=== PATIENT | female | born 2005 | race Caucasian/White ===

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

== ENCOUNTER 2025-07-30 09:32 | Emergency (ER) | payer MEDICAID, SELFPAY ==
[2025-07-30 09:47] VITALS: BP 132/94; PULSE 93; RESP 16; O2SAT 97; BMI 27.3
--- NOTE | 2025-07-30 09:59 | PC.NURSE ---
Yarelis comes from home today reporting HI towards her family members. Pt is extremely hyperverbal, unable to maintain boundaries with others at this time. Agitated. MD at bedside to assess
--- NOTE | 2025-07-30 10:19 | ED_ITS ---
HPI - Psych General Chief Complaint: Psychiatric Symptoms Stated Complaint: SEC 12 HI/BROTHER PER EMS Time Seen by Provider: 07/30/25 10:03 Source: patient, EMS, silk winding machine operator and police Mode of arrival: EMS Limitations: no limitations History of Present Illness ED Provider: DR. Rodgers HPI Narrative: 19-year-old Palestinian-speaking female with history of PTSD, bipolar 1 disorder who presents to the ED via EMS and the police under section 12 after made homicidal statements toward her family, patient had prior ED presentations similar to today's presentation. Using the silk winding machine operator service during the interview patient is paranoid, no visual hallucination, when patient was asked about SI answered vaguely that she would hurt herself if she could. Related Data Home Medications ?Medication ?Instructions ?Recorded ?Confirmed norethindrone 1 mg-ethinyl 1 tab PO DAILY 07/30/25 estradiol 20 mcg (21)-iron 75 mg (7) tablet (Izzy Fe 11/01 (28)) Allergies Allergy/AdvReac Type Severity Reaction Status Date / Time seafood AdvReac Stomach Verified 07/30/25 09:56 Upset Review of Systems 2 Review of Systems: All other systems are reviewed and are negative Constitutional: Reports as per HPI and Reports no additional constitutional complaints Eyes: Reports as per HPI and Reports no additional eye complaints Reports system reviewed and no additional complaints, except as documented Cardiovascular: Reports as per HPI and Reports no additional cardiovascular complaints Respiratory: Reports as per HPI and Reports no additional respiratory complaints Gastrointestinal: Reports as per HPI and Reports no additional gastrointestinal complaints Genitourinary: Reports no additional female genitourinary complaints Musculoskeletal: Reports no additional musculoskeletal complaints Skin/Breast: Reports system reviewed and no additional complaints, except as docu Psychiatric: Reports no additional psychiatric complaints Endocrine: Reports no additional endocrine complaints Hematologic/Lymphatic: Reports no additional hematologic/lymphatic complaints Allergic/Immunologic: Reports no additional allergic/immunologic complaints Reports system reviewed and no additional complaints, except as documented and Reports Abnormal speech present PMFSH Past Medical History Medical History Headache Depression with suicidal ideation Bipolar 1 disorder Bipolar disorder with psychotic features Suicidal behavior Mood disorder Problem with family member being ill Insomnia Palpitations Lightheadedness No known health problems Patient denies significant medical history Social History Social History Household Members: Family Household Members Other:: mother, sister Housing: Other Housing Other:: hotel Do you presently have visiting nurse or other home services: No Alcohol intake: current Alcohol intake frequency: 0-2 drinks per day Alcohol type: beer Comment: 5u Patient Tobacco Use Status: Never used Tobacco e-Cigarette/Vaping Use: Never Used Second Hand Smoke Exposure: No Substance Use Type: Marijuana Advance Directives: No Advance Directives Information Provided: No Do you have a plan to hurt others: Vague service: No Sexual orientation: Unable to collect Physical Exam 2 Vital Signs: Vital Signs: Last Vital Signs Pulse 66 07/30/25 12:20 Resp 14 07/31/25 07:14 BP 111/72 07/30/25 12:20 Pulse Ox 100 07/30/25 12:20 O2 Del Method Room Air 07/30/25 12:20 BMI result Body Mass Index 27.3 Vital signs have been reviewed and appear to be correct. Blood pressure elevated. Heart rate normal. Respiratory rate normal. Temperature normal. Oxygen saturation normal. Appearance: Alert. Oriented X3. No acute distress. Head: Normal external exam. Normocephalic. Atraumatic. No Whitney signs noted. No raccoon eyes noted Eyes: PERRLA. EOMI. Conjunctiva and sclera normal. Eyelids normal. ENT: TM's Normal. Pharynx normal. Uvula midline. Moist mucous membranes. No trismus noted. No drooling noted. No muffled voice noted. Neck: Normal inspection. Neck supple. FROM. No adenopathy. Thyroid Normal. No meningeal signs. No neck mass noted. CVS: Normal heart rate and rhythm. Heart sound normal. No murmurs noted. Pulses normal throughout. Respiratory: No respiratory distress. Painless inspiration. Breath sounds normal. No wheezes/rales/rhonchi noted. Chest nontender. No accessory muscle usage noted or decreased air movement noted. Abdomen: Soft and nontender. Bowel sounds normal in all 4 quadrants. No distention noted. No organomegaly noted. No visible injury noted. Back: No CVA tenderness. Full range of motion noted. Skin: Skin warm and dry. Normal skin color. Normal skin turgor. No rashes/lesions/lacerations noted. Extremities: No lower extremity edema. Extremities exhibit normal range of motion. Extremities nontender. Neuro: Oriented X 3. Cranial nerve exam: II-XII are grossly intact No motor deficit. No sensory deficit. Reflexes normal. Patient Orientation: Person, Place, Time and Situation, okay hygiene and grooming. Fair eye contact, attentive, no tics or tremors. Level of Consciousness: Awake, Appropriate and Alert Patient Behavior: Appropriate, Guarded, Cooperative and Anxious Mood Description: Constricted, Blunted and Apprehensive Affect Description: Constricted, Blunted and Apprehensive Patient Cognition Impaired: No Ability to Follow Directions: Excellent Speech Pattern: Clear, Appropriate and Spontaneous Speech, nonpressured, spontaneous with regular rate and rhythm, normal volume and prosody. No dysarthria. Memory Description: Intact, Immediate Intact and Short Term Intact Hallucinations: None Delusions: Not Present Thought Process: Intact Thought Content: +SI, +HI Depressive Symptoms: Not present. Judgement and Insight: Limited but adequate. Course Reevaluation(s) Reevaluation #1: Medically cleared, will start on physician observation, continuous section 12, await for care team evaluation. Time: 11:30 Medications Administered Discontinued Medications Generic Name Dose Route Start Last Admin Trade Name Freq PRN Reason Stop Dose Admin Acetaminophen 975 mg 07/30/25 19:14 07/30/25 19:42 Acetaminophen 325 Mg Tablet PO 07/30/25 19:15 975 mg ONCE ONE Administration Olanzapine 10 mg 07/30/25 11:04 07/30/25 11:20 Olanzapine 10 Mg Vial IM 07/30/25 11:05 10 mg ONCE ONE Administration Medical Decision Making Medical Decision Making [facility] Narrative: 9:58 AM 07/31/2025 (Dr. Mauri Celis): Time: 09:58 Date: 07/31/25 Provider: Mauri Celis, DO Physician observation ended Patient has been cleared for discharge by the CARE team. Will follow up as an outpatient. Differential Diagnosis Differential Diagnoses: The differential diagnosis associated with the presentation includes (Medical clearance, acute psychosis, depression, SI, HI.) Admission/Observation Consideration of admission/observation: Escalation of care including admission/observation considered Lab Data 07/30/25 19:42 07/30/25 19:42 Labs: Lab Results 07/30/25 07/30/25 Range/Units 10:51 19:42 WBC 6.5 (4.8-10.8) X10*3/uL RBC 4.87 (4.20-5.50) X10*6/uL Hgb 13.0 (12.0-16.0) g/dl Hct 39.2 (37.0-47.0) % MCV 80.5 (80.0-98.0) fL MCH 26.7 L (27.0-33.0) pg MCHC 33.2 (31.0-35.0) g/dl RDW 15.3 (11.0-16.0) % Plt Count 318 (160-400) X10*3/uL MPV 11.2 (9.4-12.3) fL Immature Gran % (Auto) 0.2 (0.0-0.4) % Neut % (Auto) 51.5 (45-73) % Lymph % (Auto) 34.6 (20-40) % [place] % (Auto) 10.3 (2-11) % Eos % (Auto) 2.9 (0-4) % Baso % (Auto) 0.5 (0-2) % Lymph # (Auto) 2.3 (1.2-4.9) X10*3/uL [place] # (Auto) 0.7 (0.1-1.2) X10*3/uL Eos # (Auto) 0.2 (0.0-0.4) X10*3/uL Baso # (Auto) 0.0 (0.0-0.2) X10*3/uL Abs Immat Gran (auto) 0.01 (0.00-0.03) X10*3/uL Absolute Neuts (auto) 3.4 (2.0-8.3) x10*3/uL Absolute Nucleated RBC 0.000 (0.0-0.012) X10*3/uL Nucleated RBC % (auto) 0.0 (0.0-0.2) /100WBC Sodium 139 (135-145) mmol/L Potassium 3.6 (3.3-5.1) mmol/L Chloride 107 (96-108) mmol/L Carbon Dioxide 21 L (22-29) mmol/L Anion Gap 15 (12-20) BUN 9 (9-16) mg/dL Creatinine 0.75 (0.5-1.4) mg/dL Estim Creat Clear Calc 100.3 Estimated GFR > 60 Random Glucose 102 (60-115) mg/dL Calcium 9.4 (8.4-10.2) mg/dL Total Bilirubin 0.5 (0.0-1.0) mg/dL Direct Bilirubin 0.2 (0.0-0.5) mg/dL AST 36 H (5-31) U/L ALT 30 (0-31) U/L Alkaline Phosphatase 97 (39-117) U/L Total Protein 8.1 H (6.5-8.0) g/dL Albumin 4.8 (3.5-5.0) g/dL Lipase 14 (8-78) U/L Urine Color Yellow Urine Appearance Clear Urine pH 7.5 (5.0-9.0) Ur Specific [place] 1.015 (1.005-1.025) Urine Protein Negative (Neg-Trace) mg/dL Urine Glucose (UA) Negative (Negative) mg/dL Urine Ketones Negative (Negative) mg/dL Urine Blood Negative (Negative) Urine Nitrite Negative (Negative) Ur Leukocyte Esterase Small (1+) H (Negative) Urine RBC 0-2 (0-2) /HPF Urine WBC 0-5 (0-5) /HPF Ur Squamous Epith Cells 3-5 (0-2) /HPF Urine Bacteria Trace (None Seen) Hyaline Casts 0-2 (0-2) /LPF Urine Test NEGATIVE (NEGATIVE) Urine Opiates Screen Not Detected (Not Detect) Ur Buprenorphine Scrn Not Detected (Not Detect) ng/mL Ur Oxycodone Screen Not Detected (Not Detect) ng/mL Urine Methadone Screen Not Detected (Not Detect) ng/mL Urine Fentanyl Screen Not Detected (Not Detect) Ur Barbiturates Screen Not Detected (Not Detect) Valproic Acid < 12.5 L (50.0-100.0) mcg/mL Ur Phencyclidine Scrn Not Detected (Not Detect) Ur Amphetamines Screen Not Detected (Not Detect) U Benzodiazepines Scrn Not Detected (Not Detect) Urine Cocaine Screen Not Detected (Not Detect) U Marijuana (THC) Screen POSITIVE H (Not Detect) Ethyl Alcohol 10 mg/dL Discharge Plan Discharge Clinical Impression: Bipolar 1 disorder with moderate enio, Homicidal ideations, Feeling suicidal Patient Disposition: Home, Self-Care Additional Instructions: You were seen in our Emergency Department today for treatment of a behavioral health issue. It is important after your visit that you follow up with either your behavioral health provider or a primary care doctor within 7 days.? If you have trouble finding a therapist you can reach out to [address] [phone] The National Suicide and Crisis Lifeline can be reached 7 days a week 24 hours a day.? Call 988 to speak with someone.? Return for any worsening symptoms or concerns such as thoughts of self harm or harm to others. Please call 911 if you feel your mental health is worsening.? Prescriptions: No Action norethindrone-e.estradiol-iron [Izzy Pelletier 11/01 (28)] 1 mg-20 mcg (21)/75 mg (7) tablet 1 tab PO DAILY Interventions: [place]-Suicide Risk Severity Scale Last Done: 07/31/25 07:14 Print Language: Palestinian
[2025-07-30 11:09] LABS: UPreg QC Valid YES
[2025-07-30 11:10] LABS: Appearance Urine Clear; Glucose Urine UA Negative (Negative); PH 7.5 (5.0-9.0); Specific Gravity - Urine 1.015 (1.005-1.025); UMIC TRIGGER UACC YES
[2025-07-30 11:19] LABS: Cannabinoid Screen Urine POSITIVE (Not Detect)
[2025-07-30] MEDS: OLANZapine 10 MG VIAL IM (11:20)
--- OUTSIDE RECORDS SUMMARY | 2025-07-30 11:21 | XMS_ITS | Encounter Summary ---
Author Organization [employer] Address [address] [place] [address] Care Team Providers Care Cma Or Lpn Name Role Phone Tabatha Reaves Primary Care Provider Reason for Visit * Reason Onset Date Comments Hospital Follow-up 05/24/2025 Encounter Details Date Type Department Care Team ([facility] st Contact Info) Description 05/24/2025 Telephone [facility] MEDICINE [address] [place] [address] Tabatha Reaves FNP [address] [place] [address] Hospital Follow-up Social History Tobacco Use Types Packs/Day Years Used Date Smoking Tobacco: Never Passive Smoke Exposure: Never Smokeless Tobacco: Never Depression Answer Date Recorded Patient Health Questionnaire-9 Score 0 06/08/2025 Patient Health Questionnaire-9 Score 0 06/08/2025 Last PHQ-9: Questionnaire Data Not on file 0 06/08/2025 Housing Stability Answer Date Recorded What is your housing situation today? I have keila coello 06/08/[address] you li ve. Do you have problems with any of the following? I am not sure 06/08/2025 Food Insecurity Answer Date Recorded Within the past 12 months, y ou worried that your food would run out before you got money to buy more: Never True 06/08/2025 Within the past 12 months,th e food you bought just didn't last and you didn't have enough money to get more: Never True Transportation Answer Date Recorded In the past 12 months, has l ack of transportation kept you from medical appts, meetings, work or from getting things needed for daily living? I am not sure 06/08/2025 Utilities Answer Date Recorded In the past 12 months, has t he electric, gas, oil or water company threatened to shut off services in your home? I am not sure 06/08/2025 Depression Answer Date Recorded Patient Health Questionnaire-2 Score 0 06/08/2025 Internet Access Answer Date Recorded Internet Access Q1 No 06/08/2025 Internet Access Q2 Not on file 06/08/2025 Comments Unknown Sex and Gender Information Value Date Recorded Sex Assigned at Female 08/12/2022 10:36 AM EDT Legal Sex Female 10:36 AM EDT Gender Identity Female 08/12/2022 10:36 AM EDT Sexual Orientation Straight 09/30/2023 4: 59 PM EST Sexual Orientation Lesbian or Jj 09/30/2023 4: 59 PM EST documented as of this encounter Functional Status * Over the past 2 weeks, how often have you been bothered by any of the following problems? Question Answer Date of Assessment Author Patient Health Questionnaire-2 Score 0 06/08/2025 11:05 AM EDT Lizbeth Verma MA * Little interest or pleasure in doing things Answer Date of Assessment Author Not at all 06/08/2025 11:05 AM REGINALDT Lizbeth Prince Ma, [place] * Feeling down, depressed, or hopeless Answer Date of Assessment Author Not at all 06/08/2025 11:05 AM Lizbeth Bertrand Ma, [place] * Trouble falling or staying asleep, or sleeping too much Answer Date of Assessment Author Not at all 06/08/2025 11:05 AM Lizbeth Bertrand Ma, [place] * Feeling tired or having little energy Answer Date of Assessment Author Not at all 06/08/2025 11:05 AM Lizbeth Bertrand Ma, [place] * Poor appetite or overeating Answer Date of Assessment Author Not at all 06/08/2025 11:05 AM Lizbeth Bertrand Ma, [place] * Feeling bad about yourself - or that you are a failure or have let yourself or your family down Answer Date of Assessment Author Not at all 06/08/2025 11:05 AM EDLizbeth Mccormack Ma, [place] * Trouble concentrating on things, such as reading the newspaper or watching television Answer Date of Assessment Author Not at all 06/08/2025 11:05 AM Lizbeth Bertrand Ma, MA * Moving or speaking so slowly that other people could have noticed? Or the opposite - being so fidgety or restless that you have been moving around a lot more than usual. Answer Date of Assessment Author Not at all 06/08/2025 11:05 AM EDT Lizbeth Prince Ma, MA * Thoughts that you would be better off or hurting yourself in some way Answer Date of Assessment Author Not at all 06/08/2025 11:05 AM Lizbeth Bertrand Ma, MA * Patient Health Questionnaire-9 Score Answer Date of Assessment Author 0 06/08/2025 11:05 AM Lizbeth Bertrand Ma, [place] * Over the last 2 weeks, how often have you been bothered by any of the following problems? Question Answer Date of Assessment Author Feeling nervous, anxious, or on edge 0 06/08/2025 11:03 AM EDT Lizbeth Thompson MA Not being able to stop or control worrying 0 06/08/2025 11:03 AM Lizbeth Matthews MA Worrying too much about different things 0 06/08/2025 11:03 AM Lizbeth Matthews MA Trouble relaxing 0 06/08/2025 11:03 AM REGINALDT Lizbeth Thompson MA Being so restless that it is hard to sit still 0 06/08/2025 11:03 AM Lizbeth Matthews MA Becoming easily annoyed or irritable 0 06/08/2025 11:03 AM Lizbeth Matthews MA Feeling afraid as if something awful might happen 0 06/08/2025 11:03 AM EDT Lizbeth Phelan MA GABRIELLE-7 Total Score 0 06/08/2025 11:03 AM EDT Lizbeth Thompson MA documented as of this encounter Miscellaneous Notes * Telephone Encounter - Bushra Ann - 05/24/2025 10:43 AM EDT Tc from [facility] correctional counselor/case manager requesting to reschedule appt from 05/26, to day after the 06/01. Please contact [facility] at [phone] documented in this encounter Plan of Treatment Not on file documented as of this encounter Visit Diagnoses Not on filedocumented in this encounter Additional Health Concerns Assessment Noted Time PHQ-9 Depression Total Score: 18 024 1:55 PM EST documented as of this encounter Care Teams Cma Or Lpn Relationship Specialty Start Date End Date Tabatha Reaves FNP [address] [place] [id number] PCP - General Family Medicine 09/13/24 documented as of this encounter
--- OUTSIDE RECORDS SUMMARY | 2025-07-30 11:21 | XMS_ITS | Encounter Summary ---
Author Organization [employer] Address [address] [facility] 7t [place] [address] Care Team Providers Care Configurator Name Role Phone Tabatha Reaves Primary Care Provider [phone] Encounter Details Date Type Department Care Team ([facility] st Contact Info) Description 11/10/2024 Telephone [facility] [address] [place] [address] Tabatha Reaves FNP [address] [place] [address] Social History Tobacco Use Types Packs/Day Years Used Date Smoking Tobacco: Never Smokeless Tobacco: Never Depression Answer Date Recorded Patient Health Questionnaire-9 Score 18 11/13/2023 Patient Health Questionnaire-9 Score 18 11/13/2023 Last PHQ-9: Questionnaire Data Not on file 0 11/13/2023 Housing Stability Answer Date Recorded What is your housing situation today? I have keila coello 09/18/[address] you li ve. Do you have problems with any of the following? Pests such as bugs, ants, or mice 09/18/2023 Food Insecurity Answer Date Recorded Within the past 12 months, y ou worried that your food would run out before you got money to buy more: Sometimes True 2022 Within the past 12 months,th e food you bought just didn't last and you didn't have enough money to get more: Sometimes True 09/18/2023 Transportation Answer Date Recorded In the past 12 months, has l ack of transportation kept you from medical appts, meetings, work or from getting things needed for daily living? Yes, it has kept me from medical appointments or getting medications. 09/18/2023 Utilities Answer Date Recorded In the past 12 months, has t he electric, gas, oil or water company threatened to shut off services in your home? No 09/18/2023 Depression Answer Date Recorded Patient Health Questionnaire-2 Score 6 11/13/2023 Comments Unknown Sex and Gender Information Value Date Recorded Sex Assigned at Female 08/12/2022 10:36 AM EDT Legal Sex Female 10:36 AM EDT Gender Identity Female 08/12/2022 10:36 AM EDT Sexual Orientation Straight 09/30/2023 4: 59 PM EST Sexual Orientation Lesbian or Jj 09/30/2023 4: 59 PM EST documented as of this encounter Plan of Treatment Not on file documented as of this encounter Visit Diagnoses Not on filedocumented in this encounter Additional Health Concerns Assessment Noted Time PHQ-9 Depression Total Score: 18 024 1:55 PM EST documented as of this encounter Care Teams Configurator Relationship Specialty Start Date End Date Tabatha Reaves FNP [address] [place] [id number] PCP - General Family Medicine 09/13/24 documented as of this encounter
--- OUTSIDE RECORDS SUMMARY | 2025-07-30 11:21 | XMS_ITS | Encounter Summary ---
Author Organization [employer] Address [address] [facility] 7t [place] [address] Care Team Providers Care Career Technical Supervisor Name Role Phone Agatha Stallings MD Primary Care Provider Tabatha Reaves Primary Care Provider Encounter Details Date Type Department Care Team (Late st Contact Info) Description 08/09/2024 Orders Only [facility]ATR[facility] [address] [place] [id number] Agatha Stallings MD [address] [place], [place] [phone] Social History Tobacco Use Types Packs/Day Years [...] documented as of this encounter Care Teams Career Technical Supervisor Relationship Specialty Start Date End Date Agatha Stallings MD [address] [place] [address] PCP - General Pediatrics 04/26/22 09/12/24 Tabatha Reaves FNP [address] [place] [address] PCP - General Family Medicine 09/13/24 documented as of this encounter
--- OUTSIDE RECORDS SUMMARY | 2025-07-30 11:21 | XMS_ITS | Clinical Summary ---
Author Organization [employer] Address [address] [facility] 7t [place] [address] Care Team Providers Care Agitator Operator Name Role Phone Tabatha Reaves REACTOR TECHNICIAN Primary Care Provider [phone] Allergies No known active allergies Medications * This document contains information received from the source organization and may not represent a complete record from that organization. fluticasone (Flonase) 50 MCG/ACT nasal spray Administer 1 spray into each nostril Once per day. 16 g 2 01/18/20 25 Active albuterol 108 (90 Base) MCG/ACT inhalerIndicat ions:COVID-19 Inhale 2 puffs every 4 (four) hours if needed for wheezing or shortness of breath. 18 g 1 01/18/20 25 026 Active divalproex (Depakote) 500 MG EC tablet Take 2 tablets by mouth at bedtime. 05/31/20 25 Active EPINEPHrine (Epipen) 0.3 MG/0.3ML injection syringe INJECT INTRAMUSCULARLY DIRECTED ON PACKAGE AND GO TO EMERGENCY ROOM 05/31/20 25 Active melatonin 3 MG tablet Take 1 tablet by mouth at bedtime. 05/31/20 25 Active risperiDONE (RisperDAL) 1 MG tablet Take 1 tablet by mouth Once per day. 05/31/20 25 Active risperiDONE (RisperDAL) 2 MG tablet Take 1 tablet by mouth at bedtime. 05/31/20 25 Active Izzy FE 11/01 1-20 MG-MCG tablet Take 1 tablet by mouth Once per day. 05/31/20 25 Active Active Problems Problem Noted Date Diagnosed Date COVID-19 01/17/2025 Assessment & Plan (01/17/2025 10:37 AM EDT): Patient doesn't have significant risk factors, no need for Paxlovid today, will fu sxs 2 days (last day that she will be eligible for Paxlovid) and change POC if needed (? Rx Paxlovid?). Isolation until 01/19/25 and she will be out of school until then. Can be out of isolation, wearing a mask from 01/20/25 until 01/24/25, if sxs are resolved without other meds for at least 24h and covid test is NEG. Otherwise will need to be on isolation until 01/23/25 and wear a face mask until test is NEG. I gave her covid tests kits Counseled to let close contacts within the past week, know about dx so they can be tested if needed. Rest (sleep at least 8 hours a night). Wash hands frequently Hydrate with plenty of water. Use saline nose drops + Flonase Take Acetaminophen or Ibuprofen as Prn fever or discomfort Gargle with salt water and use throat sprays/lozenges prn + Albuterol inh prn severe cough, chest tightness or SOB Use heated, humidified air or take hot showers. If you have a fever, stay home and away from others (self isolation) until fever-free for 72 hours (temperature should be less than 100 F without medication). She will notify her close contacts to fu with their PCP Current severe episode of ma kelly depressive disorder with psychotic features without prior episode (CMS/HCC) 09/22/2023 Assessment & Plan (11/13/2023 4:44 PM EST): Measurement Tools [Check all that apply and include scores] PHQ9: 16 STAGES OF CHANGE PRE-CONTEMPLATION PLAN: (check all that apply) Behavioral Health Integration Plan Patient Self Plan Patient to reach [facility] as needed, Patient to reach out to [facility] as needed, and mother agrees to assist in contacting [facility] and [facility] for intake appointment. I will also be putting referral for [facility]. Behavioral Health Diagnoses At this time Yarelis meets criteria for Visit Diagnoses: Problem List Items Addressed This Visit Other Current severe episode of major depressive disorder with psychotic features without prior episode (CMS/HCC) Assessment & Plan (11/07/2023 10:17 AM EST): During IBH Consult Yarelis presenting with depressed mood, loss of interests/pleasure , changes in sleep difficulty falling asleep, difficulty staying asleep , and restless, unsatisfying sleep, trouble concentrating, thoughts of worthlessness or guilt, inappropriate guilt , hopelessness, worthlessness , recent self harm and Altered sensory perception recent visual hallucinations before inpatient stay, denies current perceptual disturbances; for a period of 0-6 mo in the context of family issues (reports previous disagreements with family had exacerbated sxs) PROTECTIVE FACTORS anglican/spirituality , responsibility to loved ones, social/community supports The patient receives support from her mother and twin sister., and future oriented Measurement Tools PHQ9 ..Patient Health Questionnaire-9 Score: 16 (09/30/2023 4:38 PM) Patient Health Questionnaire-2 Score: 3 (09/30/2023 4:38 PM) Moderate depressive sxs PLAN: Continue with current services (defined as services in the past 12 months) Behavioral Health Integration Plan Internal created safety plan with patient, sibling and mother where all medications will be in safe keeping of mother and other sharp or potentially hazardous objects in home would be under safe keep of mother. Patient Self Plan Patient to utilize skills provided in intervention , Patient to reach [facility] team as needed, Comply with medication , Patient to engage in OP therapy , Patient to reach out to [facility] as needed, and Patient to follow-up with external team Assessment & Plan (09/22/2023 2:59 PM EST): Yarelis presenting with depressed mood, loss of interests/pleasure, change in psychomotor activity, loss of energy, trouble concentrating, thoughts about or suicide and Altered sensory perception, Flat affect, Passivity, Trouble processing and with decision making, Difficulty with social interactions, and Other: visual hallucinations and auditory command voices ; for a period of 0-6 mo, for all symptoms in the context of family issues. Plan: New/Additional Services needed PCP management Off-site services for clinician to reach out to PCP and CM team to place additional supports , Behavioral Health Integration Plan Internal Follow up with I, Cold handoff to [facility]/FP, referral to counseling and testing, External unsure what Upcoming appointments for OP and psychiatry are in place as patient was unable to recall and mother had all the discharge documents with the information. I placed call to mother to gather information, but was unable to connect. Left message for return call. R/o of Schizophrenia and Schizoaffective disorder Dysmenorrhea 11/11/2022 Dyssomnia 11/11/2022 Hypercholesterolemia 11/11/2022 Iron deficiency anemia 11/11/2022 Encounters * This document contains information received from the source organization and may not represent a complete record from that organization. Date Type Department Care Team Description 06/08/2025 10:00 AM EDT Office Visit [address] [address] Tabatha Reaves FNP Current severe episode of major depressive disorder with psychotic features without prior episode (CMS/HCC) (Primary Dx) 06/08/2025 Travel 06/07/[address] [address] Tabatha Reaves FNP chart prep 05/24/[address] [address] Tabatha Reaves FNP Hospital Follow-up 05/09/2025 Patient Outreach [address] [address] Tabatha Reaves FNP Transition Of Care (Tcm) (Scheduled (direct)) from Last 3 Months Immunizations Immunization Administration Dates Next Due DTaP / Hep B / IPV 2005 HPV 9-Valent 11/20/2018,05/20/2018 Hep A, Unspecified 05/20/2018 Hep A, ped/adol, 2 dose 09/08/2006 Hep B, Unspecified 03/17/2006,2005 IPV 01/16/2010, 6,01/13/2006,11/11 Influenza injectable quadriv alent preservative free 07/30/2023,11/11/2019 Influenza, seasonal, injecta ble, preservative free 09/03/2024 MMR 01/16/2010,12/19/2006 Meningococcal MCV4P ACYW-135 04/23/2022,05/20/20 18 Pneumococcal Conjugate PCV 13 12/19/2006 ,03/17/2006,01/13/2006,11/11 Tdap 05/20/2018 Varicella 01/16/2010,09/03/2007 Social History Tobacco Use Types Packs/Day Years Used Date Smoking Tobacco: Never Passive Smoke Exposure: Never Smokeless Tobacco: Never Tobacco Cessation:Counseling Given: Not Answered Depression Answer Date Recorded Patient Health Questionnaire-9 [...] or Jj 09/30/2023 4: 59 PM EST Last Filed Vital Signs Vital Sign Reading Time Taken Comments Blood Pressure 122/76 06/08/2025 10:28 AM EDT Pulse 100 06/08/2025 10:28 AM EDT Temperature 36.7 C (98.1 F) 06/08/2025 10:28 AM EDT Respiratory Rate 22 06/08/2025 10:28 AM EDT Oxygen Saturation 97% 06/08/2025 10:28 AM EDT Inhaled Oxygen Concentration - - Weight 76.3 kg (168 lb 2 oz) 06/08/2025 10:28 AM EDT Height 158.1 cm (5' 2.26 ) 06/08/2025 10:28 AM E DT Body Mass Index 30.5 06/08/2025 10:28 AM EDT Plan of Treatment Health Maintenance Due Date Last Done Comments Fluoride Varnish 05/06/2006 Family Planning (PISQ) 2020 Meningococcal B Vaccine (1 of 2 - Standard) 2021 Chlamydia and Gonorrhea Screening 10/05/2024 10/05/2023, 04/29/2022 COVID-19 Vaccine (2 - season) 2025 06/15/2021 Influenza Vaccine (#1) 2025 , 07/30/2023, 11/11/2019 Alcohol/Substance Use Screening 06/08/2026 06/08/2025 Depression Screening 06/08/2026 06/08/2025, 06/08/20 Disability Screening 06/08/2026 06/08/2025 SDOH Screening 06/08/2026 06/08/2025 Tobacco Screening 06/08/2026 06/08/2025 DTaP/Tdap/Td Vaccines (2 - Td or Tdap) 05/20/2028 05/20/2018, 2005 Zoster Vaccines (1 of 2) 2055 RSV Patients and Patients Aged 60 years or older (1 - 1-dose 75+ series) 2080 Hepatitis B Vaccines Completed 03/17/2006, 2005, 2005 Pneumococcal Vaccine: Pediatrics (0 to 5 Years) and At-Risk Patients (6 to 49) Years Completed 12/19/2006, 03/17/2006, 01/13/2006, Additional history exists IPV Vaccines Completed 01/16/2010, 02/2006, 01/13/2006, Additional history exists MMR Vaccines Completed 01/16/2010, 12/19/2006 Varicella Vaccines Completed 01/16/2010, 09/03/2007 Hepatitis A Vaccines Completed 05/20/2018, 09/08/20 06 HPV Vaccines Completed 11/20/2018, 05/20/2018 Meningococcal Vaccine Completed 04/23/2022, 018 HIV Screening Completed 04/30/2022 Hepatitis C Screening Completed 04/30/2022 HIB Vaccines Aged Out No longer eligi ble based on patient's age to complete this topic RSV under 20 months Aged Out No longe r eligible based on patient's age to complete this topic Rotavirus Vaccines Aged Out No longer eligible based on patient's age to complete this topic Procedures Procedure Name Priority Date/Time Associated Diagnosis Comments CHLAMYDIA/N. GONORRHOEAE RNA, TMA, UROGENITAL Routine 10/05/2023 8:26 AM EST ZZZ HISTORICAL HEPATITIS C AB W/REFL TO HCV RNA, QN, PCR Routine 04/30/2022 4:26 PM EDT HIV 1/2 ANTIGEN/ANTIBODY, FOURTH GENERATION W/RFL Routine 04/30/2022 4:26 PM EDT from Last 3 Months or Most Recently Relevant to Health Maintenance Results * Chlamydia/N. Gonorrhoeae RNA, TMA, Urogenitial (10/05/2023 8:26 AM EST) CT PCR NOT DETECTED Not Detect. [facility] Comment:A not detected test result does not exclude the possibilityof infection because test results can be affected byimproper specimen collection, concurrent antibiotic therapy,or the number of organisms in the specimen which may bebelow the sensitivity of the test. As with many diagnostictests, results from the Xpert CT/NG assay should beinterpreted in conjunction with other laboratory andclinical data available to the clinician.Xpert CT/NG performance has not been evaluated in patientsless than 14 years of age. The assay should not be used forthe evaluationof suspected sexual abuse or for other medico-legalindications. Additional testing is recommended in anycircumstance when false positive or false negative resultscould lead to adverse medical, social or psychologicalconsequences. NG PCR NOT DETECTED Not Detect. [facility] Comment:A not detected test result does not exclude the possibilityof infection because test results can be affected byimproper specimen collection, concurrent antibiotic therapy,or the number of organisms in the specimen which may bebelow the sensitivity of the test. As with many diagnostictests, results from the Xpert CT/NG assay should beinterpreted in conjunction with other laboratory andclinical data available to the clinician.Xpert CT/NG performance has not been evaluated in patientsless than 14 years of age. The assay should not be used forthe evaluationof suspected sexual abuse or for other medico-legalindications. Additional testing is recommended in anycircumstance when false positive or false negative resultscould lead to adverse medical, social or psychologicalconsequences. 10/05/2023 8:26 AM EST 10/05/2023 8:49 AM EST Narrative [facility] - 10/05/2023 10:24 AM EST Urine us Generic External Data Provider LAB MICROBIOLOGY - GENERAL ORDERABLES Final Result [facility] [address] [place] [phone] * HEPATITIS C AB W/REFL TO HCV RNA, QN, PCR (04/30/2022 4:26 PM EDT) HEPATITIS C ANTIBODY NON-REACT [facility] NON-REACT [facility] INDEX 0.08 <1.00 [facility] Comment: HCV antibody was non-reactive. There is no laboratory evidence of HCV infection. In most cases, no further action is required. However, if recent HCV exposure is suspected, a test for HCV RNA (test code 43401) is suggested. For additional information please refer to http://education.iZettle/faq/OLO28z0 (This link is being provided for informational/ educational purposes only.) 04/30/2022 4:26 PM EDT Agatha Stallings MD HISTORICAL/NON ORDERABLE LABS Final Result Performing Organization Address [facility] Co de Phone Number [facility] [address] * HIV 1/2 ANTIGEN/ANTIBODY,FOURTH GENERATION W/RFL (04/30/2022 4:26 PM EDT) HIV-1/2 ANTIGEN AND ANTIBODIES, 4TH GENERATION W/ REFLEX NON-REACT [facility] NON-REACT [facility] Comment: HIV-1 antigen and HIV-1/HIV-2 antibodies were not detected. There is no laboratory evidence of HIV infection. PLEASE NOTE: This information has been disclosed to you from records whose confidentiality may be protected by state law. If your state requires such protection, then the state law prohibits you from making any further disclosure of the information without the specific written consent of the person to whom it pertains, or as otherwise permitted by law. A general authorization for the release of medical or other information is NOT sufficient for this purpose. For additional information please refer to http://education.iZettle/faq/ZRW190 (This link is being provided for informational/ educational purposes only.) The performance of this assay has not been clinically validated in patients less than 2 years old. 04/30/2022 4:26 PM EDT Agatha Stallings MD LAB BLOOD ORDERABLES Final Re sult Performing Organization Address [facility] de Phone Number [facility] [address] from Last 3 Months or Most Recently Relevant to Health Maintenance [place] [address] [place] [address] C3 Care Teams Agitator Operator Relationship Specialty Start Date End Date Tabatha Reaves FNP [address] [place] [phone] PCP - General Family Medicine 09/13/24
--- OUTSIDE RECORDS SUMMARY | 2025-07-30 11:21 | XMS_ITS | Encounter Summary ---
Author Organization [employer] Address [address] [facility] [address] [place] [address] Care Team Providers Care Supervisor Phosphatic Fertilizer Name Role Phone Agatha Stallings MD Primary Care Provider [phone] Tabatha Reaves Primary Care Provider [phone] Encounter Details Date Type Department Care Team (Late st Contact Info) Description 07/15/2023 Orders Only [facility] [address] [place] [phone] Agatha Stallings MD [address] [place] [phone] Social History Tobacco Use Types Packs/Day Years Used Date Smoking Tobacco: Never Smokeless Tobacco: Never Comments Unknown Sex and Gender Information Value [...] Diagnoses Not on filedocumented in this encounter Care Teams Supervisor Phosphatic Fertilizer Relationship Specialty Start Date End Date Agatha Stallings MD [address] [place] [phone] PCP - General Pediatrics 04/26/22 09/12/24 Tabatha Reaves FNP [address] [place] [phone] PCP - General Family Medicine 09/13/24 documented as of this encounter
[2025-07-30 11:36] LABS: UACC Culture Trigger YES
[2025-07-30 11:50] VITALS: PULSE 74; RESP 16; O2SAT 98
[2025-07-30 12:05] VITALS: PULSE 71; RESP 16; O2SAT 99
[2025-07-30 12:20] VITALS: BP 111/72; PULSE 66; RESP 18; O2SAT 100
--- NOTE | 2025-07-30 12:24 | PC.NURSE ---
RE: Medication Restraint Medication Administered: - Zyprexa 10mg IM Physical Hold? Yes Details: Patient arrived via EMS, agitated, pacing, hyperverbal and manic. Patient extremely intrusive, running around other patients, touching them, refusing to maintain personal boundaries. Pt is very minimally redirectable. Dr. Rodgers consulted 10mg IM Zyprexa decided upon. Pt was escorted to [facility] by this RN and . Pt willingly took IM with and SAMRA Scott holding her arms for safety. Pt fell asleep about 30 minutes after IM was administered
--- NOTE | 2025-07-30 14:22 | PC.NURSE ---
Unable to obtain bloodwork at this time
[2025-07-30 20:06] LABS: MANUAL DIFF FLAG NO
[2025-07-30 20:07] LABS: Hematocrit 39.2 % (37.0-47.0); Hemoglobin 13.0 g/dl (12.0-16.0); Imm Gran Abs Auto 0.01 X10*3/uL (0.00-0.03); Imm Gran Pct Auto 0.2 % (0.0-0.4); Lymphocytes Absolute Auto 2.3 X10*3/uL (1.2-4.9); Mean Corpuscular HGB Conc 33.2 g/dl (31.0-35.0); Mean Corpuscular Hemoglobin 26.7 pg (27.0-33.0); Mean Corpuscular Volume 80.5 fL (80.0-98.0); NRBC Abs Auto 0.000 X10*3/uL (0.0-0.012); NRBC Pct Auto 0.0 /100WBC (0.0-0.2); Platelet Count 318 X10*3/uL (160-400); Red Blood Count 4.87 X10*6/uL (4.20-5.50); White Blood Count 6.5 X10*3/uL (4.8-10.8)
[2025-07-30 20:25] LABS: Alanine Aminotransferase 30 U/L (0-31); Albumin Level 4.8 g/dL (3.5-5.0); Alkaline Phosphatase 97 U/L (39-117); Anion Gap 15 (12-20); Aspartate Amino Transferase 36 U/L (5-31); Blood Urea Nitrogen 9 mg/dL (9-16); Calcium 9.4 mg/dL (8.4-10.2); Carbon Dioxide 21 mmol/L (22-29); Chloride 107 mmol/L (96-108); Creatinine Clr Calc Pharmacy 100.3; Estimated Glomerular Filt Rate > 60; Lipase 14 U/L (8-78); Potassium 3.6 mmol/L (3.3-5.1); Sodium 139 mmol/L (135-145); Total Protein 8.1 g/dL (6.5-8.0)
--- NOTE | 2025-07-30 20:29 | PC.NURSE ---
Assumed care of patient at 1900, patient appears to be anxious about when she will be discharged; she is noted to be on the phone on and off with her mother. She c/o of [facility] messaged - put in an order for tylenol. Pt medicated per DEC. Pt is now resting in her bed. respirations even and unlabored. Will continue to monitor.
--- NOTE | 2025-07-31 07:06 | PC.NURSE ---
Assumed care of patient at 0645, patient appears to be sleeping at this time, respirations even and unlabored, no apparent distress is noted. Continue plan of care for CARE team re-assessment this am
[2025-07-31 07:14] VITALS: RESP 14
[2025-07-31 10:06] VITALS: BP 102/66; PULSE 69; RESP 16; TEMP 37.2; O2SAT 99
== END 2025-07-31 10:33 | disposition home or self-care (01) ==
PROVIDERS: Emergency Provider Emergency Medicine; PCP Pediatrics
DX: F31.9 Bipolar disorder, unspecified (principal); R45.850 Homicidal ideations; R45.851 Suicidal ideations
CPT/HCPCS: 36415; 80048; 80076; 80164; 80307; 81001; 81025; 83690; 85025; 87086; 96372; 99285; J2359; S9485

== ENCOUNTER 2025-08-11 07:38 | Inpatient (IN) | payer OTHER, SELFPAY ==
[2025-08-11] VITALS (7 sets, daily range): BP systolic 142–145; BP diastolic 74–85; PULSE 94–133; RESP 14–22; TEMP 36.4–36.7; O2SAT 96–99; BMI 25.4
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
[2025-08-11] MEDS: OLANZapine 10 MG VIAL IM (07:55)
--- NOTE | 2025-08-11 08:15 | PC.NURSE ---
RE: blood draw Patient continually pulling away from blood draw, unable to safely obtain at this time
--- OUTSIDE RECORDS SUMMARY | 2025-08-11 08:49 | XMS_ITS | Encounter Summary ---
Author Organization [employer] Address [address] [facility] 7t [place] [address] Care Team Providers Care Circular Knife Cutter Machine Name Role Phone Tabatha Reaves RESEARCH INTERN Primary Care Provider [phone] Ellen Powell RN Unavailable [phone] Lizbeth Ann Unavailable Encounter Details Date Type Department Care Team (Late st Contact Info) Description 11/10/2024 Telephone [facility] [address] [place] [address] Tabatha Reaves FNP [address] [place], [place] [phone] Social History Tobacco Use Types Packs/Day Years [...] documented as of this encounter Care Teams Circular Knife Cutter Machine Relationship Specialty Start Date End Date Tabatha Reaves FNP [address] [place] [address] PCP - General Family Medicine 09/13/24 Ellen Powell RN [address] [place] [address] Registered Nurse Family Medicine 08/01/25 Lizbeth Ann 08/01/25 documented as of this encounter
--- OUTSIDE RECORDS SUMMARY | 2025-08-11 08:49 | XMS_ITS | Clinical Summary ---
Author Organization [employer] Address [address] [facility] 7t [place] [address] Care Team Providers Care Molecular Geneticist Name Role Phone Emili Reavesupe CITY WELLNESS COORDINATOR Primary Care Provider [phone] Ellen Powell RN Unavailable [phone] iLzbeth Ann Unavailable Allergies No known active allergies Medications * [...] disorder with psychotic features without prior episode ([facility]) 09/22/2023 Assessment & Plan (11/13/2023 4:44 PM EST): Measurement Tools [Check all that apply and include scores] PHQ9: 16 STAGES OF CHANGE PRE-CONTEMPLATION PLAN: (check all that apply) Behavioral Health Integration Plan Patient Self Plan [facility], Patient to reach out to [facility] as needed, and mother agrees to assist in contacting [facility] and [facility] for intake appointment. I will also be putting referral for [facility]. Behavioral Health Diagnoses At this time Yarelis meets criteria for Visit Diagnoses: Problem List Items Addressed This Visit Other Current severe episode of major depressive disorder with psychotic features without prior episode ([facility]) Assessment & Plan (11/07/2023 10:17 AM EST): [...] with family had exacerbated sxs) PROTECTIVE FACTORS buddhist/spirituality , responsibility to loved ones, social/community supports [...] intervention , Patient to reach out to [facility] team as needed, Comply with medication , Patient to engage in OP therapy , Patient to reach out to [facility] as needed, and Patient to follow-up with [...] organization. Date Type Department Care Team Description 08/01/2025 Patient Outreach [address] [address] Tabatha Reaves FNP Care Coordination (C3 CM-CHW Lizbeth Ann chart review) 08/01/2025 Patient Outreach [address] [address] Tabatha Reaves FNP Care Management (C3CM -CHART REVIEW/) 08/01/2025 Patient Outreach [address] [address] Tabatha Reaves FNP 06/08/2025 10:00 AM EDT Office Visit [address] [address] Tabatha Reaves FNP Current severe episode of major depressive disorder with psychotic features without prior episode (CMS/HCC) (Primary Dx) 06/08/2025 Travel 06/07/[address] [address] Tabatha Reaves FNP chart prep 05/24/[address] [address] Tabatha Reaves FNP Hospital Follow-up from Last 3 Months Immunizations Immunization Administration [...] Gonorrhea Screening 10/05/2024 10/05/2023, 04/29/2022 COVID-19 Vaccine ( - season) 2025 06/15/2021 Influenza Vaccine (#1) [...] EST) CT PCR NOT DETECTED Not Detect. [facility] Comment:A not detected test result does [...] psychologicalconsequences. NG PCR NOT DETECTED Not Detect. [facility] Comment:A not detected test result does [...] AM EST 10/05/2023 8:49 AM EST Narrative [facility] - 10/05/2023 10:24 AM EST Urine us Generic External Data Provider LAB MICROBIOLOGY - GENERAL ORDERABLES Final Result [facility] [address] [place] [address] [phone] * HEPATITIS C AB W/REFL TO HCV RNA, QN, PCR (04/30/2022 4:26 PM EDT) HEPATITIS C ANTIBODY NON-REACT JUVENTINO NON-REACT JUVENTINO [facility] INDEX 0.08 <1.00 [facility] Comment: HCV antibody was non-reactive. There is no laboratory evidence of HCV infection. In most cases, no further action is required. However, if recent HCV exposure is suspected, a test for HCV RNA (test code 87529) is suggested. For additional information please refer to http://[employer]/faq/SHZ04y2 (This link is being provided for informational/ educational purposes only.) 04/30/2022 4:26 PM EDT us Agatha Stallings MD HISTORICAL/NON ORDERABLE LABS Final Result Performing Organization Address [facility] Co de Phone Number [facility] [address] * HIV 1/2 ANTIGEN/ANTIBODY,FOURTH GENERATION W/RFL (04/30/2022 4:26 PM EDT) HIV-1/2 ANTIGEN AND ANTIBODIES, 4TH GENERATION W/ REFLEX NON-REACT JUVENTINO NON-REACT JUVENTINO [facility] Comment: HIV-1 antigen and HIV-1/HIV-2 [...] purpose. For additional information please refer to http://[employer]/faq/CQQ872 (This link is being provided for informational/ educational purposes only.) The performance of this assay has not been clinically validated in patients less than 2 years old. 04/30/2022 4:26 PM EDT us Agatha Stallings MD LAB BLOOD ORDERABLES Final Re sult Performing Organization Address [facility] Co de Phone Number [facility] [address] from Last 3 Months or Most Recently Relevant to Health Maintenance Insurance [facility] C3 Care Teams Molecular Geneticist Relationship Specialty Start Date End Date Tabatha Reaves FNP [address] [place] [phone] PCP - General Family Medicine 09/13/24 Ellen Powell, SHAMIKA [address] [place] [phone] Registered Nurse Family Medicine 08/01/25 Lizbeth Ann 08/01/25
--- OUTSIDE RECORDS SUMMARY | 2025-08-11 08:49 | XMS_ITS | Encounter Summary ---
Author Organization [employer] Address [address] [facility] 7t [place] [address] Care Team Providers Care Truck Supervisor Name Role Phone gAatha Stallings MD Primary Care Provider Tabatha ReavesP Primary Care Provider [phone] Ellen Powell RN Unavailable [phone] Lizbeth Ann Unavailable Encounter Details Date Type Department Care Team (Late st Contact Info) Description 07/15/2023 Orders Only [facility] [address] [place] [phone] Agatha Stallings MD [address] [place] [address] [phone] Social History Tobacco Use Types Packs/Day Years [...] on filedocumented in this encounter Care Teams Truck Supervisor Relationship Specialty Start Date End Date Agatha Stallings MD [address] [place] [phone] PCP - General Pediatrics 04/26/22 09/12/24 Tabatha Reaves FNP [address] [place], [place] [phone] PCP - General Family Medicine 09/13/24 Ellen Powell RN [address] [place], [place] [phone] Registered Nurse Family Medicine 08/01/25 Lizbeth Ann 08/01/25 documented as of this encounter
--- OUTSIDE RECORDS SUMMARY | 2025-08-11 08:50 | XMS_ITS | Encounter Summary ---
Author Organization [employer] Address [address] [facility] 7t [place] [address] Care Team Providers Care Petal Shaper Hand Name Role Phone Agatha Stallings MD Primary Care Provider [phone] Tabatha Reaves Primary Care Provider [phone] Ellen Powell RN Unavailable [phone] Lizbeth Ann Unavailable Encounter Details Date Type Department Care Team (Late st Contact Info) Description 08/09/2024 Orders Only [facility] [address] [place], [place] [phone] Agatha Stallings MD [address] [place], [place] [phone] Social History Tobacco Use Types Packs/Day Years Used Date Smoking Tobacco: Never Smokeless Tobacco: Never Depression Answer Date Recorded Patient Health Questionnaire-9 Score 18 11/13/2023 Patient Health Questionnaire-9 Score 18 11/13/2023 Last PHQ-9: Questionnaire Data Not on file 0 11/13/2023 Housing Stability Answer Date Recorded What is your housing situation today? I have keilavianca coello 09/18/[address] you [...] documented as of this encounter Care Teams Petal Shaper Hand Relationship Specialty Start Date End Date Agatha Stallings MD [address] [place] [phone] PCP - General Pediatrics 04/26/22 09/12/24 Tabatha Reaves FNP [address] [place] [address] PCP - General Family Medicine 09/13/24 Ellen Powell RN [address] [place] [phone] Registered Nurse Family Medicine 08/01/25 Lizbeth Ann 08/01/25 documented as of this encounter
--- OUTSIDE RECORDS SUMMARY | 2025-08-11 08:50 | XMS_ITS ---
Author Organization [employer] Address [address] [facility] [address]t [place] [address] Care Team Providers Care Hand Suture Winder Name Role Phone Tabatha ReavesP Primary Care Provider Ellen Powell RN Unavailable [phone] Lizbeth Ann Unavailable CHW Complex Status:Identified (Enrolling) Start date:08/01/2025 Enrollment reason:ADT Feed Overview ED- Pt went to [facility] ED on 07/30/25. Please outreach to patient. Case Team Name Relationship Phone Lizbeth Ann(Responsible Staff) Continued Care and Services Coordination
--- OUTSIDE RECORDS SUMMARY | 2025-08-11 08:50 | XMS_ITS ---
Author Organization [employer] Address [address] [facility] 7t [place] [address] Care Team Providers Care Supervisor Purification Name Role Phone Tabatha Reaves Primary Care Provider [phone] Ellen Powell RN Unavailable [phone] Lizbeth Ann Unavailable CM Complex Status:Identified (Enrolling) Start date:08/01/2025 Enrollment reason:ADT Feed Overview ED- Pt went to [facility] ED on 07/30/25. Case Team Name Relationship Phone Ellen Powell RN(Responsible Staff) Registered Nurse Continued Care and Services Coordination
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
--- NOTE | 2025-08-11 09:54 | MHC.CARE ---
Pt has been medicated and will be a next shift follow up.
--- NOTE | 2025-08-11 17:00 | PC.NURSE ---
Pt spent majority of day sleeping, woke up, ate some food and is now back in bed resting. Pt attempted to provide urine a third time without success. This RN also attempted blood draw but pt continues to pull away
[2025-08-11 17:26] LABS: MANUAL DIFF FLAG NO
[2025-08-11 17:27] LABS: Hematocrit 42.2 % (37.0-47.0); Hemoglobin 13.4 g/dl (12.0-16.0); Imm Gran Abs Auto 0.02 X10*3/uL (0.00-0.03); Imm Gran Pct Auto 0.2 % (0.0-0.4); Lymphocytes Absolute Auto 2.3 X10*3/uL (1.2-4.9); Mean Corpuscular HGB Conc 31.8 g/dl (31.0-35.0); Mean Corpuscular Hemoglobin 26.8 pg (27.0-33.0); Mean Corpuscular Volume 84.4 fL (80.0-98.0); NRBC Abs Auto 0.000 X10*3/uL (0.0-0.012); NRBC Pct Auto 0.0 /100WBC (0.0-0.2); Platelet Count 419 X10*3/uL (160-400); Red Blood Count 5.00 X10*6/uL (4.20-5.50); White Blood Count 8.5 X10*3/uL (4.8-10.8)
[2025-08-11 17:52] LABS: Alanine Aminotransferase 40 U/L (0-31); Albumin Level 5.2 g/dL (3.5-5.0); Alkaline Phosphatase 110 U/L (39-117); Anion Gap 16 (12-20); Aspartate Amino Transferase 39 U/L (5-31); Blood Urea Nitrogen 15 mg/dL (9-16); Calcium 9.9 mg/dL (8.4-10.2); Carbon Dioxide 23 mmol/L (22-29); Chloride 103 mmol/L (96-108); Creatinine Clr Calc Pharmacy 86.5; Estimated Glomerular Filt Rate > 60; Potassium 3.7 mmol/L (3.3-5.1); Sodium 138 mmol/L (135-145); Total Protein 9.0 g/dL (6.5-8.0)
--- NOTE | 2025-08-11 23:04 | PC.NURSE ---
RE: restraint Pt was observed thrashing in bed, punching herself in the head, punching the wall, screaming and unable to calm herself down. Pt appeared to be responding to internal stimuli, screaming at what appeared to be other individuals around the room despite being alone. Pt was IMd, required physical hold per paper documentation
--- NOTE | 2025-08-12 06:26 | PC.NURSE ---
VS attempted, but patient refused turning away in bed. Unable to obtain VS at this time.
--- NOTE | 2025-08-12 08:00 | PC.NURSE ---
Assumed care, report received. Pt is currently sleeping, she is brought breakfast. Safety is maintained.
[2025-08-12 10:19] LABS: UPreg QC Valid YES
[2025-08-12 10:22] VITALS: BP 142/100; PULSE 105; TEMP 36.9; O2SAT 95
[2025-08-12 10:22] LABS: Appearance Urine Cloudy; Glucose Urine UA Negative (Negative); PH 5.5 (5.0-9.0); Specific Gravity - Urine >= 1.030 (1.005-1.025); UMIC TRIGGER UACC YES
[2025-08-12 10:27] LABS: UACC Culture Trigger YES
[2025-08-12 10:29] LABS: Cannabinoid Screen Urine POSITIVE (Not Detect)
[2025-08-12] MEDS: OLANZapine 10 MG VIAL IM ×2 (10:53→11:57)
[2025-08-12 11:31] VITALS: BP 142/72; PULSE 105; RESP 18; TEMP 36; O2SAT 98
--- NOTE | 2025-08-12 11:49 | MHC.CARE ---
Pt has a DMH worker through [facility] office;Flores Villasenor [phone] [email or web address]
[2025-08-12] MEDS: diazePAM 10 MG/2 ML CARTRIDGE IM (13:47)
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
[2025-08-12 14:57] VITALS: BP 104/69; PULSE 130; RESP 14; TEMP 36; O2SAT 98
--- NOTE | 2025-08-12 16:34 | PC.NURSE ---
Pt was removed from Lower restraints at 1620 and removed from Upper restraints at 1640. She has been told her cell phone has been located and locked up with her belongings. She is able to agree to remain calm. she is resting in bed, VSS she is offfered food and given water.
[2025-08-12 18:43] VITALS: BP 140/81; PULSE 138; RESP 18; TEMP 36.6; O2SAT 98
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
[2025-08-12 20:00] VITALS: BP 140/81; PULSE 138; RESP 18; TEMP 36.6; O2SAT 98
[2025-08-12] MEDS: Valproic Acid Liquid 250 MG/5 ML SOLUTION 500 MG PO (21:40)
[2025-08-12] MEDS: OLANZapine ODT 10 MG TAB.RAPDIS TRANSLINGU (21:40)
[2025-08-13 08:00] VITALS: BP 133/72; PULSE 131; RESP 18; TEMP 36.2; O2SAT 98
[2025-08-13] MEDS: OLANZapine ODT 10 MG TAB.RAPDIS TRANSLINGU ×2 (08:32→21:38)
[2025-08-13] MEDS: Valproic Acid Liquid 250 MG/5 ML SOLUTION 500 MG PO ×2 (08:32→21:38)
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
[2025-08-13 11:18] LABS: Cholesterol 227 mg/dL (<200); HDL Cholesterol 41 mg/dL (>40); Magnesium 2.2 mg/dL (1.6-2.6); Triglycerides 117 mg/dL (<150)
[2025-08-13 11:26] LABS: Free T4 (Free Thyroxine) 1.41 ng/dL (0.71-1.85); Thyroid Stimulating Hormone 0.63 uIU/mL (0.32-4.0)
[2025-08-13 11:48] LABS: Folate 13.7 ng/mL (> or = 4.0); Vitamin B12 479 pg/mL (200-900)
[2025-08-13 20:00] VITALS: BP 142/95; PULSE 58; RESP 18; TEMP 36.3; O2SAT 97
[2025-08-14 08:00] VITALS: BP 136/87; PULSE 111; RESP 18; TEMP 36.2; O2SAT 96
[2025-08-14] MEDS: Valproic Acid Liquid 250 MG/5 ML SOLUTION 500 MG PO ×2 (09:39→20:58)
[2025-08-14] MEDS: OLANZapine ODT 10 MG TAB.RAPDIS TRANSLINGU ×2 (09:39→20:56)
[2025-08-14 20:00] VITALS: BP 136/62; PULSE 103; TEMP 36.7; O2SAT 97
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
[2025-08-15 08:00] VITALS: RESP 16
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
[2025-08-15] MEDS: Valproic Acid Liquid 250 MG/5 ML SOLUTION 500 MG PO ×2 (12:38→22:11)
[2025-08-15] MEDS: OLANZapine ODT 10 MG TAB.RAPDIS TRANSLINGU ×2 (12:39→22:12)
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
[2025-08-16 08:00] VITALS: RESP 16
[2025-08-16] MEDS: Valproic Acid Liquid 250 MG/5 ML SOLUTION 500 MG PO ×2 (08:18→20:48)
[2025-08-16] MEDS: OLANZapine ODT 10 MG TAB.RAPDIS TRANSLINGU ×2 (08:18→20:49)
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
[2025-08-16 20:00] VITALS: BP 107/68; PULSE 76; RESP 18; TEMP 36.8; O2SAT 98
[2025-08-17 08:00] VITALS: RESP 18
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
[2025-08-17] MEDS: Valproic Acid Liquid 250 MG/5 ML SOLUTION 500 MG PO ×2 (09:43→20:35)
[2025-08-17] MEDS: OLANZapine ODT 10 MG TAB.RAPDIS TRANSLINGU ×2 (09:43→20:35)
[2025-08-17 19:56] VITALS: BP 107/57; PULSE 97; RESP 16; TEMP 36.8; O2SAT 97
[2025-08-18 08:00] VITALS: BP 113/70; PULSE 84; TEMP 36; O2SAT 99
[2025-08-18] MEDS: Valproic Acid Liquid 250 MG/5 ML SOLUTION 500 MG PO ×2 (08:46→20:53)
[2025-08-18] MEDS: OLANZapine ODT 10 MG TAB.RAPDIS TRANSLINGU ×2 (08:46→20:53)
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
[2025-08-19] MEDS: Valproic Acid Liquid 250 MG/5 ML SOLUTION 500 MG PO ×2 (09:22→21:09)
[2025-08-19] MEDS: OLANZapine ODT 10 MG TAB.RAPDIS TRANSLINGU ×2 (09:22→21:09)
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
[2025-08-19 20:00] VITALS: BP 136/77; PULSE 108; TEMP 37; O2SAT 98
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
[2025-08-20 08:00] VITALS: BP 123/68; PULSE 95; RESP 16; TEMP 36.8; O2SAT 96
[2025-08-20] MEDS: Valproic Acid Liquid 250 MG/5 ML SOLUTION 500 MG PO ×2 (09:44→21:13)
[2025-08-20] MEDS: OLANZapine ODT 10 MG TAB.RAPDIS TRANSLINGU ×2 (09:44→21:13)
[2025-08-20 11:40] LABS: Ammonia 63 umol/L (13-55)
[2025-08-20 11:48] LABS: Alanine Aminotransferase 16 U/L (0-31); Albumin Level 4.4 g/dL (3.5-5.0); Alkaline Phosphatase 92 U/L (39-117); Aspartate Amino Transferase 20 U/L (5-31); Total Protein 7.2 g/dL (6.5-8.0)
[2025-08-20 20:00] VITALS: BP 125/85; PULSE 97; RESP 16; TEMP 37.1; O2SAT 98
[2025-08-21 08:00] VITALS: BP 119/73; PULSE 87; RESP 16; TEMP 36.9; O2SAT 97
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
[2025-08-21] MEDS: Valproic Acid Liquid 250 MG/5 ML SOLUTION 500 MG PO ×2 (08:51→21:10)
[2025-08-21] MEDS: OLANZapine ODT 10 MG TAB.RAPDIS TRANSLINGU ×2 (08:51→21:10)
[2025-08-21 20:33] VITALS: BP 119/63; PULSE 91; RESP 18; TEMP 36.4; O2SAT 98
[2025-08-22 08:00] VITALS: BP 105/67; PULSE 105; RESP 16; TEMP 36.3; O2SAT 99
[2025-08-22] MEDS: Valproic Acid Liquid 250 MG/5 ML SOLUTION 500 MG PO (08:43)
[2025-08-22] MEDS: OLANZapine ODT 10 MG TAB.RAPDIS TRANSLINGU (08:43)
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
== END 2025-08-22 11:00 | disposition home or self-care (01) | DRG 758 ==
LOC: HO.ED 10:08 → HO.PM5 08-12 13:20
PROVIDERS: Admitting Provider Clinical Nurse Specialist Psychiatric/Mental Health, Adult; Emergency Provider Emergency Medicine; PCP Pediatrics; Visit Provider Psychiatry & Neurology Psychiatry
DX: F63.81 Intermittent explosive disorder (principal); R45.851 Suicidal ideations; F39 Unspecified mood [affective] disorder; Z91.148 Patient's other noncompliance with medication regimen for other reason; F43.10 Post-traumatic stress disorder, unspecified; Z79.899 Other long term (current) drug therapy
CPT/HCPCS: 36415; 80053; 80061; 80076; 80164; 80307; 81001; 81025; 82140; 82607; 82746; 83036; 83735; 84439; 84443; 85025; 87086; 99285; J1200; J1630; J2250; J2359; J3360; S9485

== ENCOUNTER → 2025-08-12 12:40 | Outpatient (BNV) | payer OTHER, SELFPAY | PROVIDERS: Admitting Provider Clinical Nurse Specialist Psychiatric/Mental Health, Adult; Emergency Provider Emergency Medicine; PCP Pediatrics; Visit Provider Nurse Practitioner Family | DX: Z00.00 Encounter for general adult medical examination without abnormal findings (principal) | CPT/HCPCS: 99429 ==

== ENCOUNTER → 2025-08-12 12:40 | Outpatient (BNV) | payer OTHER, SELFPAY | PROVIDERS: Admitting Provider Clinical Nurse Specialist Psychiatric/Mental Health, Adult; Emergency Provider Emergency Medicine; PCP Pediatrics; Visit Provider Psychiatry & Neurology Psychiatry | DX: F63.81 Intermittent explosive disorder (principal); F43.11 Post-traumatic stress disorder, acute; F39 Unspecified mood [affective] disorder | CPT/HCPCS: 99232 ==

== ENCOUNTER 2025-09-01 08:02 | Emergency (ER) | payer MEDICAID, SELFPAY ==
[2025-09-01 08:10] VITALS: BP 140/82; PULSE 98; O2SAT 98
[2025-09-01 08:19] VITALS: BMI 25.4
[2025-09-01 08:22] VITALS: BP 132/74; PULSE 80; RESP 16; TEMP 36; O2SAT 100
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
[2025-09-01 09:04] LABS: MANUAL DIFF FLAG NO
[2025-09-01 09:06] LABS: Hematocrit 37.0 % (37.0-47.0); Hemoglobin 12.3 g/dl (12.0-16.0); Imm Gran Abs Auto 0.06 X10*3/uL (0.00-0.03); Imm Gran Pct Auto 0.5 % (0.0-0.4); Lymphocytes Absolute Auto 1.9 X10*3/uL (1.2-4.9); Mean Corpuscular HGB Conc 33.2 g/dl (31.0-35.0); Mean Corpuscular Hemoglobin 27.4 pg (27.0-33.0); Mean Corpuscular Volume 82.4 fL (80.0-98.0); NRBC Abs Auto 0.000 X10*3/uL (0.0-0.012); NRBC Pct Auto 0.0 /100WBC (0.0-0.2); Platelet Count 383 X10*3/uL (160-400); Red Blood Count 4.49 X10*6/uL (4.20-5.50); White Blood Count 12.5 X10*3/uL (4.8-10.8)
[2025-09-01 09:24] LABS: Alanine Aminotransferase 33 U/L (0-31); Albumin Level 4.8 g/dL (3.5-5.0); Alkaline Phosphatase 105 U/L (39-117); Anion Gap 14 (12-20); Aspartate Amino Transferase 25 U/L (5-31); Blood Urea Nitrogen 7 mg/dL (9-16); Calcium 9.7 mg/dL (8.4-10.2); Carbon Dioxide 23 mmol/L (22-29); Chloride 106 mmol/L (96-108); Creatinine Clr Calc Pharmacy 110.1; Estimated Glomerular Filt Rate > 60; Potassium 4.1 mmol/L (3.3-5.1); Sodium 139 mmol/L (135-145); Total Protein 8.2 g/dL (6.5-8.0)
--- NOTE | 2025-09-01 09:29 | PC.NURSE ---
Pt pacing around BH pod, agitated, pt is self-dialoguing, yelling at voices that she reports she is hearing
--- NOTE | 2025-09-01 09:50 | PC.NURSE ---
Pt remains agitated, pacing around BH pod, yelling, unable to self-calm. Verbal redirection attempted with minimal success. This RN spoke with ALEXA Barros, decision for PO Ativan at this time which patient took willingly without issue
[2025-09-01 10:28] LABS: Appearance Urine Clear; Glucose Urine UA Negative (Negative); PH 8.0 (5.0-9.0); Specific Gravity - Urine 1.015 (1.005-1.025); UMIC TRIGGER UACC YES
[2025-09-01 10:32] LABS: UPreg QC Valid YES
[2025-09-01 10:44] LABS: Cannabinoid Screen Urine POSITIVE (Not Detect)
[2025-09-01 10:48] LABS: UACC Culture Trigger YES
[2025-09-01 13:38] VITALS: BP 132/74; PULSE 80; RESP 16; TEMP 36; O2SAT 100
--- OUTSIDE RECORDS SUMMARY | 2025-09-01 14:54 | XMS_ITS ---
Author Organization [employer] Address [address] [place] [address] Care Team Providers Care Research Assistant Member Name Role Phone Tabatha ReavesP Primary Care Provider Ellen Powell RN Unavailable [phone] Lizbeth Ann Unavailable [facility] Status:Outreach In Progress (Enrolling) Start date:08/01/2025 Enrollment reason:ADT Feed Overview ED- Pt went to [facility] [place] [place] ED on 07/30/25. Please outreach to patient. Case Team Name Relationship Phone Lizbeth Ann(Responsible Staff) Continued Care and Services Coordination
--- OUTSIDE RECORDS SUMMARY | 2025-09-01 14:54 | XMS_ITS | Encounter Summary ---
Author Organization [employer] Address [address] [facility] 7t [place] [address] Care Team Providers Care Chief Mechanical Engineer Name Role Phone Tabatha Reaves BRANCH LENDING OFFICER Primary Care Provider [phone] Ellen Powell RN Unavailable [phone] Lizbeth Ann Unavailable Encounter Details Date Type Department Care Team (Late st Contact Info) Description 11/10/2024 Telephone [facility] [address] [place] [address] Tabatha Reaves FNP [address] [place], [place] [phone] Social History Tobacco Use Types Packs/Day Years [...] documented as of this encounter Care Teams Chief Mechanical Engineer Relationship Specialty Start Date End Date Tabatha Reaves FNP [address] [place] [address] PCP - General Family Medicine 09/13/24 Ellen Powell RN [address] [place] [address] Registered Nurse Family Medicine 08/01/25 Lizbeth Ann 08/01/25 documented as of this encounter
--- OUTSIDE RECORDS SUMMARY | 2025-09-01 14:54 | XMS_ITS | Clinical Summary ---
Author Organization [employer] Address [address] [facility] 7t [place] [address] Care Team Providers Care Bone Process Operator Name Role Phone Emili Reavesupe SLIP BOX CHANGER Primary Care Provider Ellen Powell RN Unavailable [phone] Lizbeth Ann Unavailable Allergies No known active allergies [...] disorder with psychotic features without prior episode ([facility]) 09/22/2023 Assessment & Plan (11/13/2023 4:44 PM EST): Measurement Tools [Check all that apply and include scores] PHQ9: 16 STAGES OF CHANGE PRE-CONTEMPLATION PLAN: (check all that apply) Behavioral Health Integration Plan Patient Self Plan [facility], Patient to reach out to [facility] as needed, and mother agrees to assist in contacting [facility] and [facility] for intake appointment. I will also be putting referral for [facility]. Behavioral Health Diagnoses At this time Yarelis meets criteria for Visit Diagnoses: Problem List Items Addressed This Visit Other Current severe episode of major depressive disorder with psychotic features without prior episode ([facility]) Assessment & Plan (11/07/2023 10:17 AM EST): [...] with family had exacerbated sxs) PROTECTIVE FACTORS episcopal/spirituality , responsibility to loved ones, social/community supports [...] intervention , Patient to reach out to [facility] team as needed, Comply with medication , Patient to engage in OP therapy , Patient to reach out to [facility] as needed, and Patient to follow-up with [...] organization. Date Type Department Care Team Description 08/25/[address] [address] Tabatha Reaves FNP FYI 08/23/2025 Patient Outreach [address] [address] Tabatha Reaves, SLIP BOX CHANGER Care Coordination ([facility] -[facility] Lizbeth Ann telephone call outreach) 08/22/2025 Patient Outreach [address] [address] Tabatha Reaves FNP 08/01/2025 Patient Outreach [address] [address] Catracho Reavese, SLIP BOX CHANGER Care Coordination ([facility] -[facility] Lizbeth Ann chart review) 08/01/2025 Patient Outreach [address] [address] Tabatha Reaves, SLIP BOX CHANGER Care Management ([facility] -CHART REVIEW/) 08/01/2025 Patient Outreach [address] [address] Tabatha Reaves, SLIP BOX CHANGER 06/08/2025 10:00 AM EDT Office Visit [address] [address] Tabatha Reaves FNP Current severe episode of major depressive disorder with psychotic features without prior episode (CMS/HCC) (Primary Dx) 06/08/2025 Travel 06/07/[address] [facility] [address] [place], [place] [phone] Tabatha Reaves FNP chart prep from Last 3 Months Immunizations Immunization Administration [...] 2021 Chlamydia and Gonorrhea Screening 10/05/2024 10/05/2023, 04/29/2022, 04/27/2022, Additional history exists COVID-19 Vaccine (2 - 2024- season) 2025 06/15/2021 Influenza Vaccine (#1) 2025 , 07/30/2023, 11/11/2019 Alcohol/Substance Use Screening 06/08/2026 06/08/2025 Depression Screening 06/08/2026 06/08/2025, 06/08/20 25 Disability Screening 06/08/2026 06/08/2025 SDOH Screening 06/08/2026 [...] EST) CT PCR NOT DETECTED Not Detect. [facility] Comment:A not detected test result does [...] psychologicalconsequences. NG PCR NOT DETECTED Not Detect. [facility] Comment:A not detected test result does [...] AM EST 10/05/2023 8:49 AM EST Narrative [facility] - 10/05/2023 10:24 AM EST Urine us Generic External Data Provider LAB MICROBIOLOGY - GENERAL ORDERABLES Final Result [facility] [address] [place] [address] [phone] * HEPATITIS C AB W/REFL TO HCV RNA, QN, PCR (04/30/2022 4:26 PM EDT) HEPATITIS C ANTIBODY NON-REACT JUVENTINO NON-REACT JUVENTINO [facility] INDEX 0.08 <1.00 [facility] Comment: HCV antibody was non-reactive. There is no laboratory evidence of HCV infection. In most cases, no further action is required. However, if recent HCV exposure is suspected, a test for HCV RNA (test code 84279) is suggested. For additional information please refer to http://[employer]/faq/HQY46p4 (This link is being provided for informational/ educational purposes only.) 04/30/2022 4:26 PM EDT Agatha Stallings MD HISTORICAL/NON ORDERABLE LABS Final Result Performing Organization Address City/[facility]/ZIP Co de Phone Number [facility] [address] * HIV 1/2 ANTIGEN/ANTIBODY,FOURTH GENERATION W/RFL (04/30/2022 4:26 PM EDT) HIV-1/2 ANTIGEN AND ANTIBODIES, 4TH GENERATION W/ REFLEX NON-REACT JUVENTINO NON-REACT JUVENTINO [facility] Comment: HIV-1 antigen and HIV-1/HIV-2 [...] purpose. For additional information please refer to http://[employer]/faq/ZMZ852 (This link is being provided for informational/ educational purposes only.) The performance of this assay has not been clinically validated in patients less than 2 years old. 04/30/2022 4:26 PM EDT us Agatha Stallings MD LAB BLOOD ORDERABLES Final Re sult [facility] [address] from Last 3 Months or Most Recently Relevant to Health Maintenance Insurance [employer] C3 Care Teams Bone Process Operator Relationship Specialty Start Date End Date Tabatha Reaves FNP [address] [place] [phone] PCP - General Family Medicine 09/13/24 Ellen Powell RN [address] [place] [address] Registered Nurse Family Medicine 08/01/25 Lizbeth Ann 08/01/25
--- OUTSIDE RECORDS SUMMARY | 2025-09-01 14:54 | XMS_ITS | Encounter Summary ---
Author Organization [employer] Address [address] [facility] 7t [place] [address] Care Team Providers Care Burring Machine Operator Name Role Phone Tabatha Reaves Primary Care Provider [phone] Ellen Powell RN Unavailable [phone] Lizbeth Ann Unavailable Reason for Visit * Reason Onset Date Comments FYI 08/25/2025 Encounter Details Date Type Department Care Team ([facility] st Contact Info) Description 08/25/2025 Telephone [facility] [address] [place], [place] [phone] Tabatha Reaves FNP [address] [place], [place] [phone] Social History Tobacco Use Types Packs/Day Years [...] PM EST documented as of this encounter Miscellaneous Notes * Telephone Encounter - Bushra Ann - 08/29/2025 10:05 AM EST Tc from Joanne repotting that the admission day is jane delayed until tomorrow 08/30 when PT is available. If any questions contact Joanne at [phone]. * Telephone Encounter - Danilo Mahoney - 08/25/2025 4:26 PM EST Tc from Rachelle with [facility] calling to inform pcp admission was delayed yesterday due topt denying services. [facility] will attempt admission tomorrow. If any questions contact Rachelle at [phone]. documented in this encounter Plan of Treatment Not on file documented as of this encounter Visit Diagnoses Not on filedocumented in this encounter Additional Health Concerns Assessment Noted Time PHQ-9 Depression Total Score: 0 06/08/20 11:05 AM EDT documented as of this encounter Care Teams Burring Machine Operator Relationship Specialty Start Date End Date Tabatha Reaves FNP [address] [place], [place] [phone] PCP - General Family Medicine 09/13/24 Ellen Powell RN [address] [place] [address] Registered Nurse Family Medicine 08/01/25 Lizbeth Ann 08/01/25 documented as of this encounter
--- OUTSIDE RECORDS SUMMARY | 2025-09-01 14:54 | XMS_ITS | Encounter Summary ---
Author Organization [employer] Address [address] [facility] 7t [place] [address] Care Team Providers Care Internal Controls Analyst Name Role Phone Agatha Stallings MD Primary Care Provider Tabatha ReavesP Primary Care Provider [phone] Ellen Powell RN Unavailable [phone] Lizbeth Ann Unavailable Encounter Details Date Type Department Care Team (Late st Contact Info) Description 07/15/2023 Orders Only [facility] [address] [place] [phone] Agatha Stallings MD [address] [place] [phone] Social History Tobacco Use Types Packs/Day Years [...] on filedocumented in this encounter Care Teams Internal Controls Analyst Relationship Specialty Start Date End Date Agatha Stallings MD [address] [place] [phone] PCP - General Pediatrics 04/26/22 09/12/24 Tabatha Reaves FNP [address] [place], [place] [phone] PCP - General Family Medicine 09/13/24 Ellen Powell RN [address] [place], [place] [phone] Registered Nurse Family Medicine 08/01/25 Lizbeth Ann 08/01/25 documented as of this encounter
--- OUTSIDE RECORDS SUMMARY | 2025-09-01 14:55 | XMS_ITS | Encounter Summary ---
Author Organization [employer] Address [address] [facility] 7t [place] [address] Care Team Providers Care Admitting Interviewer Name Role Phone Agatha Stallings MD Primary Care Provider [phone] Tabatha Reaves Primary Care Provider [phone] Ellen Powell RN Unavailable [phone] Lizbeth Ann Unavailable Encounter Details Date Type Department Care Team (Late st Contact Info) Description 08/09/2024 Orders Only [facility] [address] [place], [place] [phone] Agatha Stallings MD [address] [place], [place] [phone] Social History Tobacco Use Types Packs/Day Years [...] documented as of this encounter Care Teams Admitting Interviewer Relationship Specialty Start Date End Date Agatha Stallings MD [address] [place] [id number] PCP - General Pediatrics 04/26/22 09/12/24 Tabatha Reaves FNP [address] [place] [address] PCP - General Family Medicine 09/13/24 Ellen Powell RN [address] [place] [phone] Registered Nurse Family Medicine 08/01/25 Lizbeth Ann 08/01/25 documented as of this encounter
--- OUTSIDE RECORDS SUMMARY | 2025-09-01 14:55 | XMS_ITS ---
Author Organization [employer] Address [address] [facility] 7t [place] [address] Care Team Providers Care Skid Adzer Name Role Phone Tabatha Reaves Primary Care Provider Ellen Powell RN Unavailable [phone] Lizbeth Ann Unavailable CM Complex Status:Outreach In Progress (Enrolling) Start date:08/01/2025 Enrollment reason:ADT Feed Overview ED- Pt went to [facility] ED on 07/30/25. Case Team Name Relationship Phone Ellen Powell RN(Responsible Staff) Registered Nurse Continued Care and Services Coordination
== END 2025-09-01 13:47 | disposition home or self-care (01) ==
PROVIDERS: Emergency Provider Emergency Medicine
DX: R45.1 Restlessness and agitation (principal); F22 Delusional disorders; Z79.3 Long term (current) use of hormonal contraceptives
CPT/HCPCS: 36415; 80053; 80307; 81001; 81025; 85025; 87086; 99283; 99285; S9485

== ENCOUNTER 2025-09-03 02:00 | Emergency (ER) | payer MEDICAID, SELFPAY ==
[2025-09-03 02:08] VITALS: BP 179/100; PULSE 82; RESP 19; O2SAT 99; BMI 27.6
--- NOTE | 2025-09-03 02:24 | ED_ITS ---
HPI - Psych General Chief Complaint: Psychiatric Symptoms Stated Complaint: crisis aggresive statements PD handcuffed Time Seen by Provider: 09/03/25 02:01 Source: patient Mode of arrival: ambulatory Limitations: no limitations History of Present Illness ED Provider: Dr. Jayashree Delgado HPI Narrative: Patient comes to the emergency room accompanied by PD and EMS. According to PD and EMS, the patient was picked up from her mother's house. Seems that the mother and the patient had an argument. Patient made suicidal and homicidal statements, stating that she was going to kill herself and blow up the entire house. According to EMS, patient stated that she has found out that she is . Patient mentioned that she has not been taking any of her medications. Related Data Home Medications ?Medication ?Instructions ?Recorded ?Confirmed norethindrone 1 mg-ethinyl 1 tab PO DAILY 07/30/25 estradiol 20 mcg (21)-iron 75 mg (7) tablet (Izzy Fe 11/01 (28)) divalproex 500 mg tablet,delayed 1,000 mg PO BEDTIME 1 11/03/24 09/03/25 release olanzapine 10 mg tablet 10 mg PO BID 09/03/25 trazodone 50 mg tablet 50 mg PO BEDTIME PRN insomni a 09/03/25 09/03/25 Allergies Allergy/AdvReac Type Severity Reaction Status Date / Time seafood AdvReac Stomach Verified 09/03/25 02:18 Upset Review of Systems 2 Review of Systems: Constitutional : No Weight loss, No Fever, No Chills, No Night Sweats, No Fatigue, No Malaise ENT/Mouth : No Hearing loss, No Ear Pain, No Nasal Congestion, No Sinus Pain, No Hoarseness, No sore throat, No Rhinorrhea, No Swallowing Difficulty Eyes: No Eye Pain, No Swelling, No Redness, No Foreign Body, No Discharge, No Vision Changes Cardiovascular : No Chest Pain, No SOB, No Dyspnea on Exertion, No Orthopnea, No Edema, No Palpitations Respiratory : No Cough, No Sputum, No Wheezing, No Smoke Exposure, No Dyspnea Gastrointestinal : No Nausea, No Vomiting, No Diarrhea, No Constipation, No abdominal Pain, No Hematochezia, No Melena Genitourinary : Patient states that she has found out she is . No Dysuria, No Urinary Frequency, No Hematuria, No Urinary Incontinence, No Urgency, No Flank Pain, No Urinary Flow Changes, No Hesitancy Musculoskeletal : No joint pain, No Myalgias, No Joint Swelling Skin : No Skin Lesions, No rash Neuro : No Weakness, No Numbness, No Paresthesias, No Loss of Consciousness, No Dizziness, No Headache Psych : Complaining of feeling angry, anxious, made SI statements HI statements Heme/Lymph: No Bruising, No Bleeding,No Lymphadenopathy Endocrine : No Polyuria, No Polydipsia, No Temperature Intolerance [facility] Past Medical History Medical History Mood disorder Intermittent explosive disorder Headache Depression with suicidal ideation Bipolar 1 disorder Bipolar disorder with psychotic features Suicidal behavior Problem with family member being ill Insomnia Palpitations Lightheadedness No known health problems Patient denies significant medical history Social History Social History Household Members: Family Household Members Other:: mother, sister Housing: Apartment Housing Other:: hotel Do you presently have visiting nurse or other home services: No Unable to assess alcohol history related to: Refusing to respond Alcohol intake: current Alcohol intake frequency: 0-2 drinks per day Alcohol type: beer Comment: 5u Patient Tobacco Use Status: Never used Tobacco e-Cigarette/Vaping Use: Never Used Second Hand Smoke Exposure: No Use of substances other than those prescribed or required for medical reasons: Refusing to respond Substance Use Type: Marijuana Advance Directives: No Advance Directives Information Provided: No service: No Sexual orientation: Unable to collect Physical Exam 2 Exam: Exam: Appearance: Alert. Yelling, crying Eyes: Pupils equal, round and reactive to light. ENT: Pharynx normal. Neck: Normal inspection. Neck supple. No lymph nodes noted. No crepitus CVS: Normal heart rate and rhythm. Pulses normal. Normal S1 and S2 Respiratory: No respiratory distress. Breath sounds normal. No Wheezing. No rales Abdomen: Soft and nontender. No rigidity. No distention. Skin: Skin warm and dry. Normal skin color. Normal skin turgor. Extremities: No lower extremity edema. No Lacerations. No Rash Neuro: Cranial nerves 2-12 grossly intact Psych: Yelling, crying, agreeable to take p.o. medications Vital Signs: Vital Signs: Last Vital Signs Temp 97.5 F 09/03/25 08:13 Pulse 110 H 09/03/25 08:13 Resp 18 09/03/25 08:13 BP 120/78 09/03/25 08:13 Pulse Ox 97 09/03/25 08:13 O2 Del Method Room Air 09/03/25 08:13 BMI result Body Mass Index 27.6 Course Course Course Narrative: All of patient's labs pending. Patient is on a section 12 that it was started out by PD 2 days ago, patient was here, urine test was negative, we will obtain blood/quant hCG today Care team consult pending Physician observation started at 02:30 Reevaluation(s) Reevaluation #1: Time: 05:07 Date: 09/03/25 Provider: Adam Noble MD Patient in physician observation for psychiatric evaluation.? patient became agitated this morning and required chemical restraint (Haldol 5 mg, Valium 2.5 mg and Benadryl 50 mg IM) at 03:00 hours with good effect.. No current complaints. VS stable.? Patient is pending CARE team evaluation. laboratory evaluation is pending obtaining blood samples in urine sample.Will continue to monitor. Time: 14:06 Date: 09/03/25 Provider: Adam Noble MD Physician observation ended at 14:06 hours. Laboratory evaluation interpreted by me is as follows: Chronic normocytic anemia with an H&H of 11.0 and 33.9. CMP was normal. Beta-hCG was below detectable limits. Urinalysis was negative. Urine tox screen was positive for THC. Ethanol was below detectable limits. Patient's medications were reconciled and she was given her medications. Patient was seen by the CARE team and was felt that the patient can be discharged to home with outpatient follow-up. Therefore the patient was discharged. Medications Administered Generic Name Dose Route Start Last Admin Trade Name Freq PRN Reason Stop Dose Admin Acetaminophen 975 mg 09/03/25 12:08 09/03/25 12:29 Acetaminophen 325 Mg Tablet PO 975 mg Q4H PRN Administration Pain, Moderate(Pain Scale 4-6) Discontinued Medications Generic Name Dose Route Start Last Admin Trade Name Freq PRN Reason Stop Dose Admin Diazepam 2.5 mg 09/03/25 02:46 09/03/25 02:59 Diazepam 10 Mg/2 Ml Cartridge IM 09/03/25 02:47 2.5 mg STAT STA Administration Diphenhydramine HCl 50 mg 09/03/25 02:23 09/03/25 03:14 Diphenhydramine Hcl 25 Mg Capsule PO 09/03/25 02:24 Not Given ONCE ONE Diphenhydramine HCl 50 mg 09/03/25 02:46 09/03/25 03:00 Diphenhydramine Hcl 50 Mg/Ml Vial IM 09/03/25 02:47 50 mg ONCE ONE Administration Haloperidol 5 mg 09/03/25 02:23 09/03/25 03:14 Haloperidol 5 Mg Tablet PO 09/03/25 02:24 Not Given ONCE ONE Haloperidol Lactate 5 mg 09/03/25 02:46 09/03/25 02:59 Haloperidol Lactate 5 Mg/Ml Vial IM 09/03/25 02:47 5 mg ONCE ONE Administration Lorazepam 2 mg 09/03/25 02:23 09/03/25 03:14 Lorazepam 1 Mg Tablet PO 09/03/25 02:24 Not Given ONCE ONE Medical Decision Making Medical Decision Making MDM Narrative: Patient is willing to take p.o. medications. Patient was given p.o. Haldol, Ativan and Benadryl Differential Diagnosis Differential Diagnoses: The differential diagnosis associated with the presentation includes (Anxiety, depression, polysubstance abuse) Admission/Observation Consideration of admission/observation: Escalation of care including admission/observation considered (Patient is on a section 12 waiting to be seen by the care team to determine patient's disposition) Lab Data 09/03/25 06:07 09/03/25 06:07 Labs: Lab Results 09/03/25 09/03/25 Range/Units 06:07 09:48 WBC 8.7 (4.8-10.8) X10*3/uL RBC 4.01 L (4.20-5.50) X10*6/uL Hgb 11.0 L (12.0-16.0) g/dl Hct 33.9 L (37.0-47.0) % MCV 84.5 (80.0-98.0) fL MCH 27.4 (27.0-33.0) pg MCHC 32.4 (31.0-35.0) g/dl RDW 14.8 (11.0-16.0) % Plt Count 360 (160-400) X10*3/uL MPV 10.1 (9.4-12.3) fL Immature Gran % (Auto) 0.2 (0.0-0.4) % Neut % (Auto) 62.3 (45-73) % Lymph % (Auto) 24.8 (20-40) % Daniels % (Auto) 8.7 (2-11) % Eos % (Auto) 3.1 (0-4) % Baso % (Auto) 0.9 (0-2) % Lymph # (Auto) 2.2 (1.2-4.9) X10*3/uL Daniels # (Auto) 0.8 (0.1-1.2) X10*3/uL Eos # (Auto) 0.3 (0.0-0.4) X10*3/uL Baso # (Auto) 0.1 (0.0-0.2) X10*3/uL Abs Immat Gran (auto) 0.02 (0.00-0.03) X10*3/uL Absolute Neuts (auto) 5.4 (2.0-8.3) x10*3/uL Absolute Nucleated RBC 0.000 (0.0-0.012) X10*3/uL Nucleated RBC % (auto) 0.0 (0.0-0.2) /100WBC Sodium 139 (135-145) mmol/L Potassium 4.2 (3.3-5.1) mmol/L Chloride 109 H (96-108) mmol/L Carbon Dioxide 23 (22-29) mmol/L Anion Gap 11 L (12-20) BUN 10 (9-16) mg/dL Creatinine 0.70 (0.5-1.4) mg/dL Estim Creat Clear Calc 117.1 Estimated GFR > 60 Random Glucose 102 (60-115) mg/dL Calcium 8.9 D (8.4-10.2) mg/dL Total Bilirubin 0.2 (0.0-1.0) mg/dL Direct Bilirubin < 0.2 (0.0-0.5) mg/dL AST 24 (5-31) U/L ALT 26 (0-31) U/L Alkaline Phosphatase 96 (39-117) U/L Total Protein 7.3 (6.5-8.0) g/dL Albumin 4.2 (3.5-5.0) g/dL Beta HCG, Quant < 2 mIU/mL Urine Color Yellow Urine Appearance Clear Urine pH 6.5 (5.0-9.0) Ur Specific [place] >= 1.030 H (1.005-1.025) Urine Protein Negative (Neg-Trace) mg/dL Urine Glucose (UA) Negative (Negative) mg/dL Urine Ketones Negative (Negative) mg/dL Urine Blood Negative (Negative) Urine Nitrite Negative (Negative) Ur Leukocyte Esterase Negative (Negative) Urine Opiates Screen Not Detected (Not Detect) Ur Buprenorphine Scrn Not Detected (Not Detect) ng/mL Ur Oxycodone Screen Not Detected (Not Detect) ng/mL Urine Methadone Screen Not Detected (Not Detect) ng/mL Urine Fentanyl Screen Not Detected (Not Detect) Ur Barbiturates Screen Not Detected (Not Detect) Ur Phencyclidine Scrn Not Detected (Not Detect) Ur Amphetamines Screen Not Detected (Not Detect) U Benzodiazepines Scrn Not Detected (Not Detect) Urine Cocaine Screen Not Detected (Not Detect) U Marijuana (THC) Screen POSITIVE H (Not Detect) Ethyl Alcohol < 10 mg/dL Critical Care Time Critical Care Time Critical Care Time: Yes Total Critical Care Time: 35 Attestation: I have personally provided critical care time. Time includes review of lab data, radiology results, discussion with consultants, and monitoring for potential decompensation. Intervention performed as documented. Discharge Plan Discharge Clinical Impression: Intermittent explosive disorder, Mood disorder Patient Disposition: Home, Self-Care Additional Instructions: Your blood tests were unremarkable. Your alcohol level was below detectable limits. Your urine tox screen was positive for marijuana. You were seen by our care team clinician who felt that you can be discharged home. Please follow their instructions for further outpatient treatment and care. You were given your dose of your medications today here in the emergency department. Continue taking medications as prescribed by your providers. Follow-up with your doctor in 2 days. Please return to the emergency department if your symptoms get worse or if you develop any symptoms that are concerning to you. Behavioral Health instructions: You were seen in our Emergency Department today for treatment of a behavioral health issue. It is important after your visit that you follow up with either your behavioral health provider or a primary care doctor within 7 days.? If you have trouble finding a therapist you can reach out to [address] [phone] The National Suicide and Crisis Lifeline can be reached 7 days a week 24 hours a day.? Call 988 to speak with someone.? Return for any worsening symptoms or concerns such as thoughts of self harm or harm to others. Please call 911 if you feel your mental health is worsening.? Prescriptions: No Action trazodone 50 mg tablet 50 mg PO BEDTIME PRN (Reason: insomnia) olanzapine 10 mg tablet 10 mg PO BID divalproex 500 mg tablet,delayed release (DR/EC) 1,000 mg PO BEDTIME norethindrone-e.estradiol-iron [Izzy Pelletier 11/01 ()] 1 mg-20 mcg (21)/75 mg (7) tablet 1 tab PO DAILY Interventions: [place]-Suicide Risk Severity Scale Last Done: 09/03/25 04:19 Print Language: Irish
[2025-09-03] MEDS: diazePAM 10 MG/2 ML CARTRIDGE 2.5 MG IM (02:59)
--- NOTE | 2025-09-03 03:18 | PC.NURSE ---
Patient arrived to unit at approx 2:15. sofa cover inspector completed in the MAIN, belongings secured in Locker #3. Upon arrival, patient is verbally escalated and tearful. T/w attempted to interview patient with global regulatory lead, but was unable to perform full assessment d/t nonsensical speech. When asked, denied SI/HI/AVH. Endorsed pain but stated I can't talk about it. When asked about medication adherence, patient stated Yes, at home but I forget when was the last time. When asked what brought patient to [facility], patient stared at t/w and did not speak. Denies substance/alcohol use. Patient also reports she just found out she is , but unable to answer LMP or exact date when she got a positive test. MD Delgado aware of possible status. Late entry for 03:00 - Patient continues to be verbally escalated/agitated. Refused PO medications. IM medications obtained. Patient accepted IM medications, administered with a hold by Security staff. No physical restraint required. Patient currently resting in bed. Will continue to monitor for safety. 15 minute safety checks initiated. Plan of care ongoing.
--- OUTSIDE RECORDS SUMMARY | 2025-09-03 03:27 | XMS_ITS ---
Author Organization [employer] Address 75 [facility] 7t [place] [address] Care Team Providers Care Vehicle Leasing And Rental Manager Name Role Phone Tabatha ReavesP Primary Care Provider [phone] Ellen oPwell RN Unavailable [phone] Lizbeth Ann Unavailable CHW Complex Status:Outreach In Progress (Enrolling) Start date:08/01/2025 Enrollment reason:ADT Feed Overview ED- Pt went to [facility] on 07/30/25. Please outreach to patient. Case Team Name Relationship Phone Lizbeth Ann(Responsible Staff) Continued Care and Services Coordination
--- OUTSIDE RECORDS SUMMARY | 2025-09-03 03:27 | XMS_ITS | Encounter Summary ---
Author Organization [employer] Address 75 [facility] 7t [place] [address] Care Team Providers Care Global President Name Role Phone Agatha Stallings MD Primary Care Provider [phone] Tabatha ReavesP Primary Care Provider Ellen Powell RN Unavailable [phone] Lizbeth Ann Unavailable Encounter Details Date Type Department Care Team (Late st Contact Info) Description 07/15/2023 Orders Only [facility] [address] [place] [address] [phone] Agatha Stallings MD [address] [place] [address] [phone] Social History Tobacco Use Types Packs/Day Years [...] on filedocumented in this encounter Care Teams Global President Relationship Specialty Start Date End Date Agatha Stallings MD [address] [place] [address] [phone] PCP - General Pediatrics 04/26/22 09/12/24 Tabatha Reaves FNP [address] [place], [place] [phone] PCP - General Family Medicine 09/13/24 Ellen Powell RN 230 [place], [place] [phone] Registered Nurse Family Medicine 08/01/25 Lizbeth Ann 08/01/25 documented as of this encounter
--- OUTSIDE RECORDS SUMMARY | 2025-09-03 03:27 | XMS_ITS | Encounter Summary ---
Author Organization [employer] Address 75 [facility] 7t [place] [address] Care Team Providers Care Brand Manager Name Role Phone Tabatha Reaves Primary Care Provider [phone] Ellen Powell RN Unavailable [phone] Lizbeth Ann Unavailable Reason for Visit * Reason Onset Date Comments FYI 08/25/2025 Encounter Details Date Type Department Care Team ([facility] st Contact Info) Description 08/25/2025 Telephone [facility] [address] [place], [place] [phone] Tabatha Reaves FNP [address] [place], [place] [phone] Social History Tobacco Use Types Packs/Day Years [...] available. If any questions contact Joanne at [phone]. * Telephone Encounter - Danilo Mahoney - 08/25/2025 4:26 PM EST Tc from Rachelle with [facility] calling to inform pcp admission was delayed yesterday due topt denying services. [facility]NA will attempt admission tomorrow. If any questions contact Rachelle at [phone]. documented in this encounter Plan of Treatment Not on file documented as of this encounter Visit Diagnoses Not on filedocumented in this encounter Additional Health Concerns Assessment Noted Time PHQ-9 Depression Total Score: 0 06/08/20 11:05 AM EDT documented as of this encounter Care Teams Brand Manager Relationship Specialty Start Date End Date Tabatha Reaves FNP [address] [place], [place] [phone] PCP - General Family Medicine 09/13/24 Ellen Powell RN 230 [place] [address] Registered Nurse Family Medicine 08/01/25 Lizbeth Ann 08/01/25 documented as of this encounter
--- OUTSIDE RECORDS SUMMARY | 2025-09-03 03:27 | XMS_ITS ---
Author Organization [employer] Address [address] [facility] 7t [place] [address] Care Team Providers Care Academic Coach Name Role Phone Tabatha Reaves Primary Care Provider [phone] Ellen Powell RN Unavailable [phone] Lizbeth Ann Unavailable CM Complex Status:Outreach In Progress (Enrolling) Start date:08/01/2025 Enrollment reason:ADT Feed Overview ED- Pt went to [facility] on 07/30/25. Case Team Name Relationship Phone Ellen Powell RN(Responsible Staff) Registered Nurse Continued Care and Services Coordination
--- OUTSIDE RECORDS SUMMARY | 2025-09-03 03:27 | XMS_ITS | Encounter Summary ---
Author Organization [employer] Address 75 [facility] 7t [place] [address] Care Team Providers Care Motion Designer Name Role Phone Tabatha Reaves ULTRASOUND TECHNOLOGIST Primary Care Provider [phone] Ellen Powell RN Unavailable [phone] Lizbeth Ann Unavailable Encounter Details Date Type Department Care Team (Late st Contact Info) Description 11/10/2024 Telephone [facility] 230 [place] [address] Tabatha Reaves FNP 230 [place], [place] [phone] Social History Tobacco Use Types Packs/Day Years [...] documented as of this encounter Care Teams Motion Designer Relationship Specialty Start Date End Date Tabatha Reaves FNP 230 [place] [address] PCP - General Family Medicine 09/13/24 Ellen Powell RN 230 [place] [address] Registered Nurse Family Medicine 08/01/25 Lizbeth Ann 08/01/25 documented as of this encounter
--- OUTSIDE RECORDS SUMMARY | 2025-09-03 03:27 | XMS_ITS | Encounter Summary ---
Author Organization [employer] Address 75 [facility] 7t [place] [address] Care Team Providers Care Web Content Writer Name Role Phone Agatha Stallings MD Primary Care Provider [phone] Tabatha Reaves Primary Care Provider [phone] Ellen Powell RN Unavailable [phone] Lizbeth Ann Unavailable Encounter Details Date Type Department Care Team (Late st Contact Info) Description 08/09/2024 Orders Only [facility] 230 [place], [place] [phone] Agatha Stallings MD 230 [place], [place] [phone] Social History Tobacco Use Types Packs/Day Years [...] documented as of this encounter Care Teams Web Content Writer Relationship Specialty Start Date End Date Agatha Stallings MD [address] [place] [phone] PCP - General Pediatrics 04/26/22 09/12/24 Tabatha Reaves FNP [address] [place] [address] PCP - General Family Medicine 09/13/24 Ellen Powell RN [address] [place] [address] Registered Nurse Family Medicine 08/01/25 Lizbeth Ann 08/01/25 documented as of this encounter
--- OUTSIDE RECORDS SUMMARY | 2025-09-03 03:27 | XMS_ITS | Clinical Summary ---
Author Organization [employer] Address [address] [facility] 7t [place] [address] Care Team Providers Care Game Farm Helper Name Role Phone Emili Reavesupe DIVISION CHAIR Primary Care Provider Ellen Powell RN Unavailable [phone] Lizbeth Ann Unavailable Allergies No known [...] disorder with psychotic features without prior episode ([facility]) 09/22/2023 Assessment & Plan (11/13/2023 4:44 PM EST): Measurement Tools [Check all that apply and include scores] PHQ9: 16 STAGES OF CHANGE PRE-CONTEMPLATION PLAN: (check all that apply) Behavioral Health Integration Plan Patient Self Plan [facility], Patient to reach out to [facility] as needed, and mother agrees to assist in contacting [facility] and [facility] for intake appointment. I will also be putting referral for [facility]. Behavioral Health Diagnoses At this time Yarelis meets criteria for Visit Diagnoses: Problem List Items Addressed This Visit Other Current severe episode of major depressive disorder with psychotic features without prior episode ([facility]) Assessment & Plan (11/07/2023 10:17 AM [...] with family had exacerbated sxs) PROTECTIVE FACTORS spiritism/spirituality , responsibility to loved ones, social/community supports [...] intervention , Patient to reach out to [facility] team as needed, Comply with medication , Patient to engage in OP therapy , Patient to reach out to [facility] as needed, and Patient to [...] organization. Date Type Department Care Team Description 09/01/[address] [address] Tabatha Reaves FNP Med rec 08/25/[address] [address] Tabatha Reaves FNP FYI 08/23/2025 Patient Outreach [address] [address] Tabatha Reaves, DIVISION CHAIR Care Coordination ([facility] Lizbeth Ann telephone call outreach) 08/22/2025 Patient Outreach [address] [address] Tabatha Reaves, DIVISION CHAIR 08/01/2025 Patient Outreach [address] [address] Tabatha Reaves, DIVISION CHAIR Care Coordination ([facility] Lizbeth Ann chart review) 08/01/2025 Patient Outreach [address] [address] Tabatha Reaves, DIVISION CHAIR Care Management ([facility] -CHART REVIEW/) 08/01/2025 Patient Outreach [address] [address] Tabatha Reaves, DIVISION CHAIR 06/08/2025 10:00 AM EDT Office Visit [address] [place] [address] Tabatha Reaves FNP Current severe episode of major depressive disorder with psychotic features without prior episode (CMS/HCC) (Primary Dx) 06/08/2025 Travel 06/07/2025 Telephone [facility] [address] [place] [address] Tabatha Reaves FNP chart prep from Last [...] EST) CT PCR NOT DETECTED Not Detect. [facility] Comment:A not detected test result does [...] psychologicalconsequences. NG PCR NOT DETECTED Not Detect. [facility] Comment:A not detected test result does [...] AM EST 10/05/2023 8:49 AM EST Narrative [facility] - 10/05/2023 10:24 AM EST Urine us Generic External Data Provider LAB MICROBIOLOGY - GENERAL ORDERABLES Final Result Performing Organization Address City/[facility]/ZIP Co de Phone Number [facility] [address] [place] [phone] [phone] * HEPATITIS C AB W/REFL TO HCV RNA, QN, PCR (04/30/2022 4:26 PM EDT) HEPATITIS C ANTIBODY NON-REACT JUVENTINO NON-REACT JUVENTINO [facility] INDEX 0.08 <1.00 [facility] Comment: HCV antibody was non-reactive. There is no laboratory evidence of HCV infection. In most cases, no further action is required. However, if recent HCV exposure is suspected, a test for HCV RNA (test code 71512) is suggested. For additional information please refer to http://Splash.FM.[employer]/faq/LOT29m2 (This link is being provided for informational/ educational purposes only.) 04/30/2022 4:26 PM EDT Agatha Stallings MD HISTORICAL/NON ORDERABLE LABS Final Result Performing Organization Address City/[facility] Co de Phone Number [facility] [address] * HIV 1/2 ANTIGEN/ANTIBODY,FOURTH GENERATION W/RFL (04/30/2022 4:26 PM EDT) HIV-1/2 ANTIGEN AND ANTIBODIES, 4TH GENERATION W/ REFLEX NON-REACT JUVENTINO NON-REACT JUVENTINO [facility] Comment: HIV-1 antigen and HIV-1/HIV-2 [...] purpose. For additional information please refer to http://education.Flat[employer]ger.[employer]/faq/JLP500 (This link is being provided for informational/ educational purposes only.) The performance of this assay has not been clinically validated in patients less than 2 years old. 04/30/2022 4:26 PM EDT us Agatha Stallings MD LAB BLOOD ORDERABLES Final Re sult [facility] [address] from Last 3 Months or Most Recently Relevant to Health Maintenance Insurance [employer] Care Teams Game Farm Helper Relationship Specialty Start Date End Date Tabatha Reaves FNP [address] [place] [address] PCP - General Family Medicine 09/13/24 Ellen Powell RN [address] [place] [address] Registered Nurse Family Medicine 08/01/25 Lizbeth Ann 08/01/25
--- OUTSIDE RECORDS SUMMARY | 2025-09-03 03:27 | XMS_ITS | Encounter Summary ---
Author Organization [employer] Address 75 [facility] 7t [place] [address] Care Team Providers Care Banking Pin Adjuster Name Role Phone Tabatha Reaves Primary Care Provider [phone] Ellen Powell RN Unavailable [phone] Lizbeth Ann Unavailable Reason for Visit * Reason Onset Date Comments Med rec 09/01/2025 Encounter Details Date Type Department Care Team (Late st Contact Info) Description 09/01/2025 Telephone [facility] [address] [place] [address] Tabatha Reaves FNP [address] [place], [place] [phone] Med rec Social History Tobacco Use Types Packs/Day Years [...] encounter Miscellaneous Notes * Telephone Encounter - Casa [place] - 09/01/2025 4:24 PM EST Tc from Guillermo with [facility] reporting that pt was admitted on 08/31/2025 for halfway. Pt is going to be seen daily. Guillermo is requesting a call back to do medication reconciliation. Contact guillermo at [phone] documented in this encounter Plan of Treatment Not on file documented as of this encounter Visit Diagnoses Not on filedocumented in this encounter Additional Health Concerns Assessment Noted Time PHQ-9 Depression Total Score: 0 06/08/20 25 11:05 AM EDT documented as of this encounter Care Teams Banking Pin Adjuster Relationship Specialty Start Date End Date Tabatha Reaves FNP [address] [place] [address] PCP - General Family Medicine 09/13/24 Ellen Powell RN [address] [place] [address] Registered Nurse Family Medicine 08/01/25 Lizbeth Ann 08/01/25 documented as of this encounter
--- NOTE | 2025-09-03 05:08 | PC.NURSE ---
Unable to collect blood/urine sample d/t patient currently resting s/p IM for increased agitation. Plan to collect this AM and pass information to oncoming RN.
[2025-09-03 06:14] LABS: Hematocrit 33.9 % (37.0-47.0); Hemoglobin 11.0 g/dl (12.0-16.0); Imm Gran Abs Auto 0.02 X10*3/uL (0.00-0.03); Imm Gran Pct Auto 0.2 % (0.0-0.4); Lymphocytes Absolute Auto 2.2 X10*3/uL (1.2-4.9); MANUAL DIFF FLAG NO; Mean Corpuscular HGB Conc 32.4 g/dl (31.0-35.0); Mean Corpuscular Hemoglobin 27.4 pg (27.0-33.0); Mean Corpuscular Volume 84.5 fL (80.0-98.0); NRBC Abs Auto 0.000 X10*3/uL (0.0-0.012); NRBC Pct Auto 0.0 /100WBC (0.0-0.2); Platelet Count 360 X10*3/uL (160-400); Red Blood Count 4.01 X10*6/uL (4.20-5.50); White Blood Count 8.7 X10*3/uL (4.8-10.8)
[2025-09-03 06:37] LABS: Alanine Aminotransferase 26 U/L (0-31); Albumin Level 4.2 g/dL (3.5-5.0); Alkaline Phosphatase 96 U/L (39-117); Anion Gap 11 (12-20); Aspartate Amino Transferase 24 U/L (5-31); Blood Urea Nitrogen 10 mg/dL (9-16); Calcium 8.9 mg/dL (8.4-10.2); Carbon Dioxide 23 mmol/L (22-29); Chloride 109 mmol/L (96-108); Creatinine Clr Calc Pharmacy 117.1; Estimated Glomerular Filt Rate > 60; Potassium 4.2 mmol/L (3.3-5.1); Sodium 139 mmol/L (135-145); Total Protein 7.3 g/dL (6.5-8.0)
--- NOTE | 2025-09-03 07:31 | PC.NURSE ---
Assumed care, report received. Pt is currently sleeping, she is brought breakfast, safety is maintained.
[2025-09-03 08:13] VITALS: BP 120/78; PULSE 110; RESP 18; TEMP 36.4; O2SAT 97
[2025-09-03 10:04] LABS: Appearance Urine Clear; Glucose Urine UA Negative (Negative); PH 6.5 (5.0-9.0); Specific Gravity - Urine >= 1.030 (1.005-1.025)
[2025-09-03 10:15] LABS: Cannabinoid Screen Urine POSITIVE (Not Detect)
== END 2025-09-03 14:27 | disposition home or self-care (01) ==
PROVIDERS: Emergency Medicine; Emergency Provider Emergency Medicine Emergency Medical Services
DX: F63.81 Intermittent explosive disorder (principal); R45.851 Suicidal ideations; R45.850 Homicidal ideations; R10.22 Pelvic and perineal pain left side; Z91.148 Patient's other noncompliance with medication regimen for other reason; Z79.899 Other long term (current) drug therapy; Z51.81 Encounter for therapeutic drug level monitoring
CPT/HCPCS: 36415; 80048; 80076; 80307; 81003; 84702; 85025; 96372; 99285; J1200; J1630; J3360; S9485

== ENCOUNTER 2025-09-09 11:12 | Inpatient (IN) | payer OTHER, SELFPAY ==
--- NOTE | 2025-09-09 | ECG_ITS ---
Test Reason : Blood Pressure : */* mmHG Vent. Rate : 71 BPM Atrial Rate : 71 BPM P-R Int : 112 ms QRS Dur : 66 ms QT Int : 386 ms P-R-T Axes : 16 46 8 degrees QTcB Int : 419 ms Normal sinus rhythm with sinus arrhythmia Normal ECG When compared with ECG of 08-Nov-2024 15:12, T wave inversion now evident in Inferior leads Referred By: Latonia Quesada Electronically Signed By: YULIA GARY
[2025-09-09 11:29] VITALS: BP 127/74; BP 140/98; PULSE 74; PULSE 84; RESP 16; TEMP 36.8; O2SAT 100; BMI 66.6
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
--- OUTSIDE RECORDS SUMMARY | 2025-09-09 11:57 | XMS_ITS | Encounter Summary ---
Author Organization [employer] Address 75 [facility] 7t [place] [address] Care Team Providers Care Reception Interviewer Name Role Phone Tabatha Reaves CHARGE ENTRY CLERK Primary Care Provider [phone] Ellen Powell RN Unavailable [phone] Lizbeth Ann Unavailable Encounter Details Date Type Department Care Team (Late st Contact Info) Description 11/10/2024 Telephone [facility] [address] [place] [address] Tabatha Reaves FNP [address] [place], [place] [phone] Social History Tobacco Use Types Packs/Day Years [...] documented as of this encounter Care Teams Reception Interviewer Relationship Specialty Start Date End Date Tabatha Reaves FNP [address] [place] [address] PCP - General Family Medicine 09/13/24 Ellen Powell RN [address] [place] [address] Registered Nurse Family Medicine 08/01/25 Lizbeth Ann 08/01/25 documented as of this encounter
--- OUTSIDE RECORDS SUMMARY | 2025-09-09 11:57 | XMS_ITS | Encounter Summary ---
Author Organization [employer] Address 75 [facility] 7t [place] [address] Care Team Providers Care Dispenser Operator Name Role Phone Tabatha Reaves Primary Care Provider [phone] Ellen Powell RN Unavailable [phone] Lizbeth Ann Unavailable Reason for Visit * Reason Onset Date Comments Med rec 09/01/2025 Encounter Details Date Type Department Care Team (Late st Contact Info) Description 09/01/2025 Telephone [facility] [address] [place] [address] Tabatha Reaves FNP [address] [place], [place] [phone] Med rec Social History Tobacco Use Types [...] 4:24 PM EST Tc from Guillermo with [facility] reporting that pt was admitted on 08/31/2025 for fpc. Pt is going to be seen daily. Guillermo is requesting a call back to do medication reconciliation. Contact guillermo at [phone] documented in this encounter Plan of Treatment Not on file documented as of this encounter Visit Diagnoses Not on filedocumented in this encounter Additional Health Concerns Assessment Noted Time PHQ-9 Depression Total Score: 0 06/08/20 25 11:05 AM EDT documented as of this encounter Care Teams Dispenser Operator Relationship Specialty Start Date End Date Tabatha Reaves FNP [address] [place] [address] PCP - General Family Medicine 09/13/24 Ellen Powell RN [address] [place] [address] Registered Nurse Family Medicine 08/01/25 Lizbeth Ann 08/01/25 documented as of this encounter
--- OUTSIDE RECORDS SUMMARY | 2025-09-09 11:57 | XMS_ITS | Clinical Summary ---
Author Organization [employer] Address [address] [facility] [address]t [place] [address] Care Team Providers Care Stone Finisher Name Role Phone Emili Reavesupe SERVICE REPRESENTATIVE Primary Care Provider [phone] Ellen Powell RN Unavailable [phone] Lizbeth Ann Unavailable Allergies No known [...] disorder with psychotic features without prior episode ([facility]) 09/22/2023 Assessment & Plan (11/13/2023 4:44 PM EST): Measurement Tools [Check all that apply and include scores] PHQ9: 16 STAGES OF CHANGE PRE-CONTEMPLATION PLAN: (check all that apply) Behavioral Health Integration Plan Patient Self Plan Patient to [facility] as [facility], Patient to reach out to [facility] as needed, and mother agrees to assist in contacting [facility] and [facility] for intake appointment. I will also be putting referral for [facility]. Behavioral Health Diagnoses At this time Yarelis meets criteria for Visit Diagnoses: Problem List Items Addressed This Visit Other Current severe episode of major depressive disorder with psychotic features without prior episode ([facility]) Assessment & Plan (11/07/2023 10:17 AM EST): [...] with family had exacerbated sxs) PROTECTIVE FACTORS yazidi/spirituality , responsibility to loved ones, social/community supports [...] Patient to reach out to [facility] team as needed, Comply with medication , Patient to engage in OP therapy , Patient to reach out to [facility] as needed, and Patient to [...] Type Department Care Team Description 09/01/[address] [address] Tabatha Reaves FNP Med rec 08/25/[address] [address] Tabatha Reaves FNP FYI 08/23/2025 Patient Outreach [address] [address] Tabatha Reaves FNP Care Coordination ([facility] Lizbeth Ann telephone call outreach) 08/22/2025 Patient Outreach [address] [address] Tabatha Reaves FNP 08/01/2025 Patient Outreach [address] [address] Tabatha Reaves FNP Care Coordination ([facility] Lizbeth Ann chart review) 08/01/2025 Patient Outreach [address] [address] Tabatha Reaves FNP Care Management ([facility] -CHART REVIEW/) 08/01/2025 Patient Outreach [address] [address] Tabatha Reaves FNP from Last 3 Months Immunizations Immunization Administration [...] Health Maintenance Due Date Last Done Comments Family Planning (PISQ) 2020 Meningococcal B Vaccine (1 of 2 - Standard) 2021 Chlamydia and Gonorrhea Screening 10/05/2024 10/05/2023, 04/29/2022, 04/27/2022, Additional history exists COVID-19 Vaccine (2 - season) 2025 06/15/2021 [...] Completed 01/16/2010, 02/2006, 01/13/2006, Additional history exists Hepatitis A Vaccines Completed 05/20/2018, 09/08/20 06 [...] EST) CT PCR NOT DETECTED Not Detect. [facility] Comment:A not detected test result does [...] psychologicalconsequences. NG PCR NOT DETECTED Not Detect. [facility] Comment:A not detected test result does [...] AM EST 10/05/2023 8:49 AM EST Narrative [facility] - 10/05/2023 10:24 AM EST Urine us Generic External Data Provider LAB MICROBIOLOGY - GENERAL ORDERABLES Final Result [facility] [address] [place] [phone] * HEPATITIS C AB W/REFL TO HCV RNA, QN, PCR (04/30/2022 4:26 PM EDT) HEPATITIS C ANTIBODY NON-REACT JUVENTINO NON-REACT JUVENTINO [facility] INDEX 0.08 <1.00 [facility] Comment: HCV antibody was non-reactive. There is no laboratory evidence of HCV infection. In most cases, no further action is required. However, if recent HCV exposure is suspected, a test for HCV RNA (test code 86484) is suggested. For additional information please refer to http://Qminder.CrowdCompass/faq/FVI40b5 (This link is being provided for informational/ educational purposes only.) 04/30/2022 4:26 PM EDT Agatha Stallings MD HISTORICAL/NON ORDERABLE LABS Final Result Performing Organization Address [facility] Co de Phone Number [facility] [address] * HIV 1/2 ANTIGEN/ANTIBODY,FOURTH GENERATION W/RFL (04/30/2022 4:26 PM EDT) HIV-1/2 ANTIGEN AND ANTIBODIES, 4TH GENERATION W/ REFLEX NON-REACT JUVENTINO NON-REACT JUVENTINO [facility] Comment: HIV-1 antigen and HIV-1/HIV-2 [...] purpose. For additional information please refer to http://Qminder.CrowdCompass/faq/ZDZ173 (This link is being provided for informational/ educational purposes only.) The performance of this assay has not been clinically validated in patients less than 2 years old. 04/30/2022 4:26 PM EDT Agatha Stallings MD LAB BLOOD ORDERABLES Final Re sult Performing Organization Address [facility] Co de Phone Number [facility] [address] from Last 3 Months or Most Recently Relevant to Health Maintenance Insurance [facility] C3 Care Teams Stone Finisher Relationship Specialty Start Date End Date Tabatha Reaves FNP [address] [place] [phone] PCP - General Family Medicine 09/13/24 Ellen Powell RN [address] [place] [id number] Registered Nurse Family Medicine 08/01/25 Lizbeth Ann 08/01/25
--- OUTSIDE RECORDS SUMMARY | 2025-09-09 11:57 | XMS_ITS | Encounter Summary ---
Author Organization [employer] Address [address] [facility] 7t [place] [address] Care Team Providers Care Sheet Rock Taper Name Role Phone Tabatha Reaves Primary Care Provider [phone] Ellen Powell RN Unavailable [phone] Lizbeth Ann Unavailable Reason for Visit * Reason Onset Date Comments FYI 08/25/2025 Encounter Details Date Type Department Care Team ([facility] st Contact Info) Description 08/25/2025 Telephone [facility] [address] [place], [place] [phone] Tabatha Reaves FNP [address] [place], [place] [phone] Social History Tobacco Use Types Packs/Day Years [...] available. If any questions contact Joanne at [phone]. * Telephone Encounter - Danilo Mahoney - 08/25/2025 4:26 PM EST Tc from Rachelle with [facility] calling to inform pcp admission was delayed yesterday due topt denying services. [facility]NA will attempt admission tomorrow. If any questions contact Rachelle at [phone]. documented in this encounter Plan of Treatment Not on file documented as of this encounter Visit Diagnoses Not on filedocumented in this encounter Additional Health Concerns Assessment Noted Time PHQ-9 Depression Total Score: 0 06/08/20 11:05 AM EDT documented as of this encounter Care Teams Sheet Rock Taper Relationship Specialty Start Date End Date Tabatha Reaves FNP [address] [place], [place] [phone] PCP - General Family Medicine 09/13/24 Ellen Powell RN [address] [place] [address] Registered Nurse Family Medicine 08/01/25 Lizbeth Ann 08/01/25 documented as of this encounter
--- OUTSIDE RECORDS SUMMARY | 2025-09-09 11:57 | XMS_ITS ---
Author Organization [employer] Address [address] [facility] 7t [place] [address] Care Team Providers Care Fill Plant Operator Name Role Phone Tabatha Reaves Primary Care Provider Ellen Powell RN Unavailable [phone] Lizbeth Ann Unavailable CM Complex Status:Outreach In Progress (Enrolling) Start date:08/01/2025 Enrollment reason:ADT Feed Overview ED- [place] [facility] [place] [facility] [place]. Case Team Name Relationship Phone Ellen Powell RN(Responsible Staff) Registered Nurse Continued Care and Services Coordination
--- OUTSIDE RECORDS SUMMARY | 2025-09-09 11:57 | XMS_ITS ---
Author Organization [employer] Address [address] [facility] 7t [place] [address] Care Team Providers Care Lead Presser Name Role Phone Tabatha ReavesP Primary Care Provider [phone] Ellen Powell RN Unavailable [phone] Lizbeth Ann Unavailable CHW Complex Status:Outreach In Progress (Enrolling) Start date:08/01/2025 Enrollment reason:ADT Feed Overview ED- [place] [facility] [place]. Please outreach to patient. Case Team Name Relationship Phone Lizbeth Ann(Responsible Staff) [phone] Continued Care and Services Coordination
--- OUTSIDE RECORDS SUMMARY | 2025-09-09 11:57 | XMS_ITS | Encounter Summary ---
Author Organization [employer] Address [address] [facility] 7t [place] [address] Care Team Providers Care Assistant Commissioner Name Role Phone Agatha Stallings MD Primary Care Provider [phone] Tabatha Reaves Primary Care Provider [phone] Ellen Powell RN Unavailable [phone] Lizbeth Ann Unavailable Encounter Details Date Type Department Care Team (Late st Contact Info) Description 08/09/2024 Orders Only [facility] [address] [place], [place] [phone] Agatha Stallings MD [address] [place], [place] [phone] Social History Tobacco Use Types Packs/Day Years [...] documented as of this encounter Care Teams Assistant Commissioner Relationship Specialty Start Date End Date Agatha Stallings MD [address] [place] [phone] PCP - General Pediatrics 04/26/22 09/12/24 Tabatha Reaves FNP [address] [place] [address] PCP - General Family Medicine 09/13/24 Ellen Powell RN [address] [place] [address] Registered Nurse Family Medicine 08/01/25 Lizbeth Ann 08/01/25 documented as of this encounter
--- OUTSIDE RECORDS SUMMARY | 2025-09-09 11:57 | XMS_ITS | Encounter Summary ---
Author Organization [employer] Address [address] [facility] 7t [place] [address] Care Team Providers Care Manager Practice Name Role Phone Agatha Stallings MD Primary Care Provider Tabatha ReavesP Primary Care Provider Ellen Powell RN Unavailable [phone] Lizbeth Ann Unavailable Encounter Details Date Type Department Care Team (Late st Contact Info) Description 07/15/2023 Orders Only [facility] [address] [place] [address] [phone] Agatha Stallings MD [address] [place] [address] [phone] Social History Tobacco Use Types Packs/Day Years [...] on filedocumented in this encounter Care Teams Manager Practice Relationship Specialty Start Date End Date Agatha Stallings MD [address] [place] [phone] PCP - General Pediatrics 04/26/22 09/12/24 Tabatha Reaves FNP [address] [place], [place] [phone] PCP - General Family Medicine 09/13/24 Ellen Powell RN [address] [place], [place] [phone] Registered Nurse Family Medicine 08/01/25 Lizbeth Ann 08/01/25 documented as of this encounter
[2025-09-09 12:21] VITALS: BP 127/74; PULSE 74; RESP 16; TEMP 36.8; O2SAT 100
[2025-09-09 12:40] LABS: MANUAL DIFF FLAG NO
[2025-09-09 12:43] LABS: Appearance Urine Clear; Glucose Urine UA Negative (Negative); PH 8.0 (5.0-9.0); Specific Gravity - Urine 1.020 (1.005-1.025); UMIC TRIGGER UACC YES
[2025-09-09 12:44] LABS: Hematocrit 37.8 % (37.0-47.0); Hemoglobin 12.2 g/dl (12.0-16.0); Imm Gran Abs Auto 0.02 X10*3/uL (0.00-0.03); Imm Gran Pct Auto 0.2 % (0.0-0.4); Lymphocytes Absolute Auto 2.3 X10*3/uL (1.2-4.9); Mean Corpuscular HGB Conc 32.3 g/dl (31.0-35.0); Mean Corpuscular Hemoglobin 27.0 pg (27.0-33.0); Mean Corpuscular Volume 83.6 fL (80.0-98.0); NRBC Abs Auto 0.000 X10*3/uL (0.0-0.012); NRBC Pct Auto 0.0 /100WBC (0.0-0.2); Platelet Count 336 X10*3/uL (160-400); Red Blood Count 4.52 X10*6/uL (4.20-5.50); White Blood Count 9.2 X10*3/uL (4.8-10.8)
[2025-09-09 12:52] LABS: Cannabinoid Screen Urine POSITIVE (Not Detect)
--- NOTE | 2025-09-09 12:58 | ED_ITS ---
HPI - Psych General Chief Complaint: Psychiatric Symptoms Stated Complaint: SI/HI Time Seen by Provider: 09/09/25 11:22 Source: patient and EMS Limitations: no limitations History of Present Illness ED Provider: Buck HPI Narrative: Chief Complaint: ?I was reported to have suicidal and homicidal thoughts.? History of Present Illness: 20-year-old female presented after statements of suicidal ideation (SI) and homicidal ideation (HI) made at her outpatient therapist?s office earlier today. At that time, she reportedly expressed intent to harm her stepbrother and mentioned wanting to hit someone with a chair. Upon arrival to the ED, she denies any current SI or HI, stating she was ?just angry? at the time of the statements. She reports no current thoughts of self-harm or harm to others. She denies visual, auditory, or tactile hallucinations. She denies current use of drugs, alcohol, or tobacco. She endorses longstanding psychiatric conditions including intermittent explosive disorder, mood disorder, bipolar I with moderate enio, PTSD, insomnia, and sinus tachycardia. She denies any medical complaints today. Related Data Home Medications ?Medication ?Instructions ?Recorded ?Confirmed norethindrone 1 mg-ethinyl 1 tab PO DAILY 07/30/25 estradiol 20 mcg (21)-iron 75 mg (7) tablet (Izzy Fe 11/01 ()) divalproex 500 mg tablet,delayed 1,000 mg PO BEDTIME 1 11/03/24 09/03/25 release olanzapine 10 mg tablet 10 mg PO BID 09/03/25 trazodone 50 mg tablet 50 mg PO BEDTIME PRN insomni a 09/03/25 09/03/25 Previous Rx's ?Medication ?Instructions ?Recorded cefuroxime axetil 250 mg tablet 250 mg PO BID 7 days # 14 tabs 09/09/25 Allergies Allergy/AdvReac Type Severity Reaction Status Date / Time seafood AdvReac Stomach Verified 09/09/25 11:39 Upset Review of Systems 2 Review of Systems: Review of Systems: * Psychiatric: Denies current suicidal ideation, homicidal ideation, or hallucinations. * Substance use: Denies alcohol, tobacco, or illicit drug use. * General / other systems: Denies acute medical complaints. Yes all other systems are reviewed and are negative PMFSH Past Medical History Attestation statement: The following information was validated with the patient. Source: old records reviewed and nursing notes reviewed Medical History Mood disorder Intermittent explosive disorder Headache Depression with suicidal ideation Bipolar 1 disorder Bipolar disorder with psychotic features Suicidal behavior Problem with family member being ill Insomnia Palpitations Lightheadedness No known health problems Patient denies significant medical history Social History Social History Household Members: Family Household Members Other:: mother, sister Housing: Apartment Housing Other:: hotel Do you presently have visiting nurse or other home services: No Alcohol intake: current Alcohol intake frequency: 0-2 drinks per day Alcohol type: beer Comment: 5u Patient Tobacco Use Status: Never used Tobacco Smoked in Last 30 Days: Yes e-Cigarette/Vaping Use: Never Used Second Hand Smoke Exposure: No Use of substances other than those prescribed or required for medical reasons: Refusing to respond Substance Use Type: Marijuana Advance Directives: No Advance Directives Information Provided: No Do you have a plan to hurt others: Vague Patient : Yes service: No Sexual orientation: Unable to collect Physical Exam 2 Exam: Exam: Appearance: Alert.? Oriented X3.? No acute distress.? Head: Normocephalic, atraumatic, no step-offs or deformities Eyes: Pupils equal, round and reactive to light.? Neck: Normal inspection.? Neck supple.? CVS: Normal heart rate and rhythm.? Pulses normal.? Respiratory: No respiratory distress.? Breath sounds normal.? Abdomen: Soft and nontender.? Skin: Skin warm and dry.? Normal skin color.? Normal skin turgor.? Extremities: No lower extremity edema.? No calf ttp. 5/5 strength to bilateral upper and lower extremities Back: No midline tenderness, no C-spine tenderness, full range of motion, no CVA tenderness bilaterally Neuro: Oriented X 3.? No motor deficit.? No sensory deficit. CN 2-12 intact Vital Signs: Vital Signs: Last Vital Signs Temp 98.2 F 09/09/25 12:21 Pulse 74 09/09/25 12:21 Resp 16 09/09/25 12:21 BP 127/74 09/09/25 12:21 Pulse Ox 100 09/09/25 12:21 O2 Del Method Room Air 09/09/25 12:21 BMI result Body Mass Index 66.6 vss Course Reevaluation(s) Reevaluation #1: CBC unremarkable. Chemistry no acute findings needing intervention. Beta hCG negative. UA with positive infection. Will start Ceftin. Urine toxicology positive for marijuana. Salicylates acetaminophen ethanol negative. Time: 13:44 Reevaluation #2: At this time patient to be placed into observation to allow more time to be evaluated by care team. Time: 14:34 Reevaluation #3: Patient will be an inpatient psych admission. Time: 14:50 Medical Decision Making Medical Decision Making MDM Narrative: 1343 20-year-old female with multiple pre-existing psychiatric diagnoses, evaluated for reported SI/HI that she now denies. Currently calm and cooperative, without active psychosis or suicidal/homicidal intent. Problem #1: Reported Suicidal and Homicidal Ideation (now denied) Assessment: Patient previously expressed intent to harm stepbrother and vague suicidal thoughts at therapist?s office; now denies any SI/HI. No active intent or plan identified on interview. Plan: * Medical clearance completed in ED. * Psychiatric evaluation by care team for safety assessment and further management. * Continue monitoring behavior while in ED. Problem #2: Intermittent Explosive Disorder / Mood Disorders Assessment: History of intermittent explosive disorder, bipolar I (moderate enio), PTSD, insomnia contributing to prior outburst and reported threats. Plan: * Provide information to psychiatric team for medication and behavioral therapy review. * Reinforce need for ongoing outpatient mental health follow-up. * Safety planning as per psychiatric recommendations. Differential Diagnosis Differential Diagnoses: The differential diagnosis associated with the presentation includes * Intermittent Explosive Disorder (most likely): History of intermittent explosive disorder and current episode characterized by anger and threats, now resolved. * Bipolar I Disorder with moderate enio: Documented history, may contribute to mood instability and impulsivity. * Mood Disorder NOS: History of mood disorder, possible contributor to emotional dysregulation. * Post-Traumatic Stress Disorder (PTSD): History of PTSD, may influence emotional responses and behavioral outbursts. * Substance-induced mood disorder (less likely): Patient denies substance use, making this diagnosis less probable. * Psychotic disorder (less likely): Patient denies hallucinations and is currently calm and cooperative, reducing likelihood of active psychosis. * Adjustment disorder (possible): Acute stressor and emotional response may indicate adjustment disorder. Admission/Observation Consideration of admission/observation: Escalation of care including admission/observation considered (likely) Consult Healthcare Provider Management of the patient was discussed with: Behavioral Health Provider Lab Data MDM Lab Attestation statement: I reviewed the patient's lab results. 09/09/25 12:36 09/09/25 12:36 Labs: Lab Results 09/09/25 09/09/25 Range/Units 12:36 12:37 WBC 9.2 (4.8-10.8) X10*3/uL RBC 4.52 (4.20-5.50) X10*6/uL Hgb 12.2 (12.0-16.0) g/dl Hct 37.8 (37.0-47.0) % MCV 83.6 (80.0-98.0) fL MCH 27.0 (27.0-33.0) pg MCHC 32.3 (31.0-35.0) g/dl RDW 13.9 (11.0-16.0) % Plt Count 336 (160-400) X10*3/uL MPV 10.5 (9.4-12.3) fL Immature Gran % (Auto) 0.2 (0.0-0.4) % Neut % (Auto) 65.3 (45-73) % Lymph % (Auto) 24.5 (20-40) % [place] % (Auto) 5.9 (2-11) % Eos % (Auto) 3.0 (0-4) % Baso % (Auto) 1.1 (0-2) % Lymph # (Auto) 2.3 (1.2-4.9) X10*3/uL [place] # (Auto) 0.5 (0.1-1.2) X10*3/uL Eos # (Auto) 0.3 (0.0-0.4) X10*3/uL Baso # (Auto) 0.1 (0.0-0.2) X10*3/uL Abs Immat Gran (auto) 0.02 (0.00-0.03) X10*3/uL Absolute Neuts (auto) 6.0 (2.0-8.3) x10*3/uL Absolute Nucleated RBC 0.000 (0.0-0.012) X10*3/uL Nucleated RBC % (auto) 0.0 (0.0-0.2) /100WBC Sodium 140 (135-145) mmol/L Potassium 3.7 (3.3-5.1) mmol/L Chloride 105 (96-108) mmol/L Carbon Dioxide 24 (22-29) mmol/L Anion Gap 15 (12-20) BUN 11 (9-16) mg/dL Creatinine 0.73 (0.5-1.4) mg/dL Estim Creat Clear Calc 179.8 Estimated GFR > 60 Random Glucose 104 (60-115) mg/dL Calcium 9.7 D (8.4-10.2) mg/dL Magnesium 1.8 (1.6-2.6) mg/dL Total Bilirubin 0.2 (0.0-1.0) mg/dL AST 22 (5-31) U/L ALT 18 (0-31) U/L Alkaline Phosphatase 107 (39-117) U/L Total Protein 8.1 H (6.5-8.0) g/dL Albumin 4.7 (3.5-5.0) g/dL Beta HCG, Quant < 2 mIU/mL Urine Color Yellow Urine Appearance Clear Urine pH 8.0 (5.0-9.0) Ur Specific [place] 1.020 (1.005-1.025) Urine Protein Negative (Neg-Trace) mg/dL Urine Glucose (UA) Negative (Negative) mg/dL Urine Ketones Negative (Negative) mg/dL Urine Blood Moderate (2+) H (Negative) Urine Nitrite Negative (Negative) Ur Leukocyte Esterase Trace H (Negative) Urine RBC 3-5 H (0-2) /HPF Urine WBC 0-5 (0-5) /HPF Ur Squamous Epith Cells 6-10 (0-2) /HPF Urine Bacteria 3+ (None Seen) Hyaline Casts 0-2 (0-2) /LPF Urine Test NEGATIVE (NEGATIVE) Salicylates < 5.0 L (15-30) mg/dL Urine Opiates Screen Not Detected (Not Detect) Ur Buprenorphine Scrn Not Detected (Not Detect) ng/mL Ur Oxycodone Screen Not Detected (Not Detect) ng/mL Urine Methadone Screen Not Detected (Not Detect) ng/mL Urine Fentanyl Screen Not Detected (Not Detect) Acetaminophen < 3 (<30) mcg/mL Ur Barbiturates Screen Not Detected (Not Detect) Ur Phencyclidine Scrn Not Detected (Not Detect) Ur Amphetamines Screen Not Detected (Not Detect) U Benzodiazepines Scrn Not Detected (Not Detect) Urine Cocaine Screen Not Detected (Not Detect) U Marijuana (THC) Screen POSITIVE H (Not Detect) Ethyl Alcohol < 10 mg/dL External Record Review External record reviewed: Inpatient record, Office record, Outpatient record, Prior outpatient labs, Prior outpatient radiology, Primary care record and Outside ED record Chronic Conditions Patient?s care impacted by: Other Critical Care Time Critical Care Time Critical Care Time: No Discharge Plan Discharge Clinical Impression: Intermittent explosive disorder, UTI (urinary tract infection) Patient Disposition: Admitted As Inpatient Interventions: Wise-Suicide Risk Severity Scale Last Done: 09/09/25 12:21
[2025-09-09 12:59] LABS: Acetaminophen LAB < 3 mcg/mL (<30); Salicylate < 5.0 mg/dL (15-30)
[2025-09-09 13:10] LABS: Alanine Aminotransferase 18 U/L (0-31); Albumin Level 4.7 g/dL (3.5-5.0); Alkaline Phosphatase 107 U/L (39-117); Anion Gap 15 (12-20); Aspartate Amino Transferase 22 U/L (5-31); Blood Urea Nitrogen 11 mg/dL (9-16); Calcium 9.7 mg/dL (8.4-10.2); Carbon Dioxide 24 mmol/L (22-29); Chloride 105 mmol/L (96-108); Creatinine Clr Calc Pharmacy 179.8; Estimated Glomerular Filt Rate > 60; Magnesium 1.8 mg/dL (1.6-2.6); Potassium 3.7 mmol/L (3.3-5.1); Sodium 140 mmol/L (135-145); Total Protein 8.1 g/dL (6.5-8.0)
--- NOTE | 2025-09-09 13:33 | PC.NURSE ---
patient attempted to contact sister Phone number retrieved from cell phone [phone]
[2025-09-09 14:02] LABS: UPreg QC Valid YES
[2025-09-09 17:42] VITALS: BP 132/82; PULSE 88; RESP 16; O2SAT 99; BMI 32.7
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
[2025-09-09 20:00] VITALS: BP 129/89; PULSE 88; RESP 16; TEMP 36.4; O2SAT 98
[2025-09-09] MEDS: Valproic Acid Liquid 250 MG/5 ML SOLUTION 500 MG PO (21:37)
[2025-09-10 08:00] VITALS: BP 139/83; PULSE 95; RESP 20; TEMP 36.4; O2SAT 98
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
[2025-09-10] MEDS: Valproic Acid Liquid 250 MG/5 ML SOLUTION 500 MG PO ×2 (09:36→21:44)
[2025-09-10 09:47] LABS: Cholesterol 199 mg/dL (<200); HDL Cholesterol 48 mg/dL (>40); Triglycerides 150 mg/dL (<150)
[2025-09-10 10:02] LABS: Free T4 (Free Thyroxine) 0.94 ng/dL (0.71-1.85); Thyroid Stimulating Hormone 1.62 uIU/mL (0.32-4.0)
--- NOTE | 2025-09-10 11:21 | PC.NURSE ---
Day Notice signed 09/10/25 --up on Friday09/14/25. Provider, SW, and Utilization notified via email.
[2025-09-10 21:59] VITALS: BP 130/78; PULSE 88; RESP 16; TEMP 36.6; O2SAT 97
[2025-09-11 08:00] VITALS: BP 148/78; PULSE 100; RESP 18; TEMP 36.2; O2SAT 98
[2025-09-11] MEDS: Valproic Acid Liquid 250 MG/5 ML SOLUTION 500 MG PO ×2 (08:20→21:44)
[2025-09-11 19:35] VITALS: BP 138/74; PULSE 90; TEMP 36.1; O2SAT 99
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
[2025-09-12] MEDS: Valproic Acid Liquid 250 MG/5 ML SOLUTION 500 MG PO ×2 (09:49→22:10)
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
[2025-09-12 22:19] VITALS: BP 104/63; PULSE 75; RESP 18; TEMP 36.6; O2SAT 97
[2025-09-13] MEDS: Valproic Acid Liquid 250 MG/5 ML SOLUTION 500 MG PO ×2 (08:59→21:25)
[2025-09-13 09:03] VITALS: RESP 18
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
[2025-09-13 19:50] VITALS: BP 125/69; PULSE 98; TEMP 36.8; O2SAT 98
[2025-09-14 08:00] VITALS: RESP 16
[2025-09-14] MEDS: Valproic Acid Liquid 250 MG/5 ML SOLUTION 500 MG PO (08:44)
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
== END 2025-09-14 10:54 | disposition home or self-care (01) | DRG 758 ==
LOC: HO.ED 11:54 → HO.PADLT16 14:43
PROVIDERS: Physician Assistant; Social Worker; Admitting Provider Psychiatry & Neurology Psychiatry; Emergency Provider Emergency Medicine; Responsible Provider Registered Nurse; Visit Provider Psychiatry & Neurology Psychiatry
DX: F63.81 Intermittent explosive disorder (principal); R45.851 Suicidal ideations; R45.850 Homicidal ideations; F43.10 Post-traumatic stress disorder, unspecified; Z79.899 Other long term (current) drug therapy
CPT/HCPCS: 36415; 80053; 80061; 80143; 80164; 80179; 80307; 81001; 81025; 83036; 83735; 84439; 84443; 84702; 85025; 93005; 99285

== ENCOUNTER → 2025-09-09 14:25 | Outpatient (BNV) | payer MEDICAID, SELFPAY | PROVIDERS: Admitting Provider Psychiatry & Neurology Psychiatry; Emergency Provider Emergency Medicine; Visit Provider Nurse Practitioner Family | DX: Z02.2 Encounter for examination for admission to residential institution (principal) | CPT/HCPCS: 99429 ==

== ENCOUNTER → 2025-09-09 14:25 | Outpatient (BNV) | payer OTHER, SELFPAY | PROVIDERS: Admitting Provider Psychiatry & Neurology Psychiatry; Emergency Provider Emergency Medicine; Visit Provider Social Worker | DX: F63.81 Intermittent explosive disorder (principal) | CPT/HCPCS: 99231; 99232 ==

== ENCOUNTER → 2025-09-09 14:25 | Outpatient (BNV) | payer MEDICAID, SELFPAY | PROVIDERS: Admitting Provider Psychiatry & Neurology Psychiatry; Emergency Provider Emergency Medicine; Visit Provider Internal Medicine | DX: Z13.6 Encounter for screening for cardiovascular disorders (principal) | CPT/HCPCS: 93010 ==

== ENCOUNTER 2025-09-23 19:28 | Emergency (ER) | payer MEDICAID, SELFPAY ==
[2025-09-23 19:33] VITALS: BMI 22.3
[2025-09-23] MEDS: OLANZapine 10 MG VIAL 5 MG IM (19:52)
--- NOTE | 2025-09-23 19:54 | ED.PSYCH ---
HPI - Psych General Chief Complaint: Psychiatric Symptoms Stated Complaint: Psychiatric disturbance Time Seen by Provider: 09/23/25 19:34 History of Present Illness ED Provider: gordon HPI Narrative: 20-year-old female with psychiatric history arrives by EMS apparently called for ?need medications ?she felt as if she was having crisis. EN route she was reported by French-speaking EMS staff to have made homicidal statements including ?I am going to bash his head in and blow his head away ?or something to that effect. She arrived and immediately unbuckled herself in the gurney tried to ambulate or leave. We were able to verbally deescalate her and get her to voluntarily walk to the crisis area where she voluntarily change into a gown and allowed for evaluation. Related Data Home Medications ?Medication ?Instructions ?Recorded ?Confirmed trazodone 50 mg tablet 50 mg PO BEDTIME PRN insomnia 09/03/25 09/09/25 valproic acid (as sodium salt) 250 500 mg PO BID 09/09/25 09/09/25 mg/5 mL oral solution Previous Rx's ?Medication ?Instructions ?Recorded cefuroxime axetil 250 mg tablet 250 mg PO BID 3 days #6 tabs 09/13/25 olanzapine 10 mg tablet 10 mg PO DAILY 30 days #30 tabs 09/13/25 olanzapine 20 mg tablet 20 mg PO BEDTIME 30 days #30 tabs 09/13/25 Allergies Allergy/AdvReac Type Severity Reaction Status Date / Time seafood AdvReac Stomach Verified 09/23/25 19:40 Upset PMFSH Past Medical History Medical History Mood disorder Intermittent explosive disorder Headache Depression with suicidal ideation Bipolar 1 disorder Bipolar disorder with psychotic features Suicidal behavior Problem with family member being ill Insomnia Palpitations Lightheadedness No known health problems Patient denies significant medical history Social History Social History Household Members: Family Household Members Other:: mother, sister Housing: Apartment Housing Other:: hotel Do you presently have visiting nurse or other home services: No Unable to assess alcohol history related to: Unknown Alcohol intake: current Alcohol intake frequency: 0-2 drinks per day Alcohol type: beer Comment: 5u Patient Tobacco Use Status: Never used Tobacco e-Cigarette/Vaping Use: Never Used Second Hand Smoke Exposure: No Use of substances other than those prescribed or required for medical reasons: Unknown Substance Use Type: Marijuana Advance Directives: No Advance Directives Information Provided: Yes Do you have a plan to hurt others: High Lethality Patient : No service: No Sexual orientation: Straight/Heterosexual Physical Exam Exam: Exam: On arrival patient was quite agitated not cooperative. She is screaming and yelling and French She appears to have pressured speech appears likely psychotic and agitated. No obvious external signs of injury though she did not allow full comprehensive physical examination Vital Signs: Vital Signs: Last Vital Signs Temp 98.0 F 09/24/25 07:17 Pulse 76 09/24/25 07:17 Resp 14 09/24/25 07:17 BP 116/84 09/24/25 07:17 Pulse Ox 98 09/24/25 07:17 O2 Del Method Room Air 09/24/25 07:17 BMI result Body Mass Index 22.3 Course Reevaluation(s) Reevaluation #1: Time: 9:00 Date: 09/24/[address] Rodgers Patient in physician observation for psychiatric evaluation.? No acute events reported overnight. No current complaints. VS stable.? Patient is await for care team input Will continue to monitor. time: 10;00 Date 09/24/25: provider DR. Rodgers. Care team input is appreciated, patient at this point declined SI or HI, no hallucination. Care team recommended to discharge home patient feels safe to be discharged home. Will discontinue physician observation now. Medications Administered Discontinued Medications Generic Name Dose Route Start Last Admin Trade Name Zach PRN Reason Stop Dose Admin Diazepam 5 mg 09/23/25 19:35 09/24/25 07:15 Diazepam 5 Mg Tablet PO 09/23/25 19:36 Not Given ONCE ONE Diphenhydramine HCl 25 mg 09/23/25 19:35 09/23/25 19:53 Diphenhydramine Hcl 50 Mg/Ml Vial IM 09/23/25 19:36 25 mg ONCE ONE Administration Midazolam HCl 5 mg 09/23/25 19:35 09/23/25 19:52 Midazolam Hcl 5 Mg/Ml Vial IM 09/23/25 19:36 5 mg ONCE ONE Administration Olanzapine 5 mg 09/23/25 19:35 09/23/25 19:52 Olanzapine 10 Mg Vial IM 09/23/25 19:36 5 mg STAT STA Administration Olanzapine 5 mg 09/23/25 19:35 09/24/25 07:15 Olanzapine 5 Mg Tablet PO 09/23/25 19:36 Not Given ONCE ONE Medical Decision Making Medical Decision Making MDM Narrative: Medical Decision Makin-year-old female arrived agitated possibly psychotic. HI statements made. For staff safety I have ordered p.o. and IM medications if needed Likely migraine, stress, tension, dehydration. plan for multimodal non opioid analgesia. occip nerve block R side after risk/benefit shared decision Preliminary Favored Differential Diagnosis: [ ] among additional considered etiologies Testing Interpreted Independently: ?See below for details Radiology or Lab testing Results Reviewed: ?See below for details Consults: ?See below for details Independent Historians/External Chart Reviews: ?See below for details Social Determinants of Health Impacting MDM/Planning: ?See below for details Lab Data Labs: Lab Results 09/24/25 Range/Units 07:18 Urine Color Yellow Urine Appearance Clear Urine pH 6.0 (5.0-9.0) Ur Specific [place] >= 1.030 H (1.005-1.025) Urine Protein Trace (Neg-Trace) mg/dL Urine Glucose (UA) Negative (Negative) mg/dL Urine Ketones Negative (Negative) mg/dL Urine Blood Negative (Negative) Urine Nitrite Negative (Negative) Ur Leukocyte Esterase Negative (Negative) Urine Test NEGATIVE (NEGATIVE) Urine Opiates Screen Not Detected (Not Detect) Ur Buprenorphine Scrn Not Detected (Not Detect) ng/mL Ur Oxycodone Screen Not Detected (Not Detect) ng/mL Urine Methadone Screen Not Detected (Not Detect) ng/mL Urine Fentanyl Screen Not Detected (Not Detect) Ur Barbiturates Screen Not Detected (Not Detect) Ur Phencyclidine Scrn Not Detected (Not Detect) Ur Amphetamines Screen Not Detected (Not Detect) U Benzodiazepines Scrn POSITIVE H (Not Detect) Urine Cocaine Screen Not Detected (Not Detect) U Marijuana (THC) Screen POSITIVE H (Not Detect) Procedures Procedure Narrative Procedure Narrative: Nerve Block Procedure: Indication: Anesthesia/Analgesia for the affected area. Performed by: Abhishek Wiggins MD Approximate Time:?10 min A R Greater Occip nerve block was performed.? After explanation of the risks, benefits, and alternatives verbal consent was obtained ?A neurologic exam was conducted including motor and/or sensory testing of the [brachial plexus], There were no deficits. Extremity compartments were soft.? The area of injection was prepped with alcohol landmarks palpated and 6cc 1%lido w epi injected. Tolerated well. greater occup Discharge Plan Discharge Clinical Impression: Acute anxiety Patient Disposition: Home, Self-Care Instructions: Anxiety (ED) Additional Instructions: You were seen in our Emergency Department today for treatment of a behavioral health issue. It is important after your visit that you follow up with either your behavioral health provider or a primary care doctor within 7 days.? If you have trouble finding a therapist you can reach out to [address] [phone] [facility] can be reached 7 days a week 24 hours a day.? Call [phone] to speak with someone.? Return for any worsening symptoms or concerns such as thoughts of self harm or harm to others. Please call 911 if you feel your mental health is worsening.? Prescriptions: No Action trazodone 50 mg tablet 50 mg PO BEDTIME PRN (Reason: insomnia) valproic acid (as sodium salt) 250 mg/5 mL solution 500 mg PO BID cefuroxime axetil 250 mg Tablet 250 mg PO BID 3 Days Qty: 6 0RF olanzapine 10 mg Tablet 10 mg PO DAILY 30 Days Qty: 30 0RF olanzapine 20 mg tablet 20 mg PO BEDTIME 30 Days Qty: 30 0RF Interventions: [place]-Suicide Risk Severity Scale Last Done: 09/23/25 20:00 Print Language: French
[2025-09-23 20:00] VITALS: BP 132/86; PULSE 122; RESP 17; TEMP 36.4; O2SAT 98
--- NOTE | 2025-09-23 21:00 | PC.NURSE ---
Assumed care of pt, presents to the ED from home with homicidal statements, pt called EMS stating that she needed medication and making HI comments towards step-brother saying I'm going to bash his head in and blow his head away. , Pt was very agitated on arrival, but cooperative, PT is resting in bed, equal respiration with chest rise and fall
--- OUTSIDE RECORDS SUMMARY | 2025-09-23 22:54 | XMS_ITS | Encounter Summary ---
Author Organization [employer] Address [address] [facility] [address] [facility] [address] [place] [address] Care Team Providers Care Cloth Shearing Supervisor Name Role Phone Tabatha Reaves Primary Care Provider [phone] Ellen Powell RN Unavailable [phone] Lizbeth Ann Unavailable Reason for Visit * Reason Onset Date Comments fyi 09/19/2025 Encounter Details Date Type Department Care Team ([facility] st Contact Info) Description 09/19/2025 Telephone [facility] MEDICINE [address] [place], [place] [phone] Tabatha Reaves FNP [address] [place], [place] [phone] fy Social History Tobacco Use Types Packs/Day Years [...] encounter Miscellaneous Notes * Telephone Encounter - Natalie Barry RN - 09/20/2025 2:37 PM EST Noted. * Telephone Encounter - Luis Bravo - 09/19/2025 10:30 AM EST Tc from Annabel at [facility] reporting pt was no home when nurse went to see her for skillednursing . Pt reported can not be home till , where a 2nd attempt for nurse to see pt will be made . Contact Annabel at [phone] documented in this encounter Plan of Treatment Not on file documented as of this encounter Visit Diagnoses Not on filedocumented in this encounter Additional Health Concerns Assessment Noted Time PHQ-9 Depression Total Score: 0 06/08/20 25 11:05 AM EDT documented as of this encounter Care Teams Cloth Shearing Supervisor Relationship Specialty Start Date End Date Tabatha Reaves FNP [address] [place] [address] PCP - General Family Medicine 09/13/24 Ellen Powell RN [address] [place] [address] Registered Nurse Family Medicine 08/01/25 Lizbeth Ann 08/01/25 Rosetta 08/31/25 documented as of this encounter
--- OUTSIDE RECORDS SUMMARY | 2025-09-23 22:55 | XMS_ITS | Encounter Summary ---
Author Organization [employer] Address [address] [facility] [address] [place] [address] Care Team Providers Care Line Patroller Name Role Phone Tabatha Reaves DECISION ANALYST Primary Care Provider [phone] Ellen Powell RN Unavailable [phone] Lizbeth Ann Unavailable Encounter Details Date Type Department Care Team (Late st Contact Info) Description 09/20/2025 Patient Outreach [facility] MEDICINE [address] [place] [address] Tabatha Reaves FNP [address] [place], [place] [phone] Social History Tobacco Use Types Packs/Day Years [...] documented as of this encounter Care Teams Line Patroller Relationship Specialty Start Date End Date Tabatha Reaves FNP [address] [place] [address] PCP - General Family Medicine 09/13/24 Ellen Powell RN [address] [place] [address] Registered Nurse Family Medicine 08/01/25 Lizbeth Ann 08/01/25 Rosetta 08/31/25 documented as of this encounter
--- OUTSIDE RECORDS SUMMARY | 2025-09-23 22:55 | XMS_ITS | Encounter Summary ---
Author Organization [employer] Address [address] [facility] 7t [place] [address] Care Team Providers Care Research Laboratory Technician Name Role Phone Agatha Stallings MD Primary Care Provider Tabatha ReavesP Primary Care Provider Ellen Powell RN Unavailable [phone] Lizbeth Ann Unavailable Encounter Details Date Type Department Care Team (Late st Contact Info) Description 07/15/2023 Orders Only [facility] [address] [place] [address] [phone] Agatha Stallings MD [address] [place] [address] [phone] Social History Tobacco Use Types Packs/Day Years [...] on filedocumented in this encounter Care Teams Research Laboratory Technician Relationship Specialty Start Date End Date Agatha Stallings MD [address] [place] [address] [phone] PCP - General Pediatrics 04/26/22 09/12/24 Tabatha Reaves FNP [address] [place], [place] [phone] PCP - General Family Medicine 09/13/24 Ellen Powell RN 230 [place], [place] [phone] Registered Nurse Family Medicine 08/01/25 Lizbeth Ann 08/01/25 Rosetta 08/31/25 documented as of this encounter
--- OUTSIDE RECORDS SUMMARY | 2025-09-23 22:55 | XMS_ITS | Encounter Summary ---
Author Organization [employer] Address [address] [facility] 7t [place] [address] Care Team Providers Care Culinary Arts Instructor Name Role Phone Tabatha Reaves Primary Care Provider Ellen Powell RN Unavailable [phone] Lizbeth Ann Unavailable Reason for Visit * Reason Onset Date Comments Med rec 09/01/2025 Encounter Details Date Type Department Care Team (Late st Contact Info) Description 09/01/2025 Telephone [facility] 230 [place], [place] [phone] Tabatha Reaves FNP [address] [place], [place] [phone] Med rec Social History Tobacco Use Types [...] Telephone Encounter - Natalie [place] RN - 09/21/2025 3:37 PM EST Tc to Eris from [facility] to do med reconciliation for home fdc services. No answer, lvm to return call and ask to speak to [place] team nurses. * Telephone Encounter - Casa Carter - 09/01/2025 4:24 PM EST Tc from Guillermo with [facility] reporting that pt was admitted on 08/31/2025 for fdc. Pt is going to be seen daily. Guillermo is requesting a call back to do medication reconciliation. Contact guillermo at [phone] documented in this encounter Plan of Treatment Not on file documented as of this encounter Visit Diagnoses Not on filedocumented in this encounter Additional Health Concerns Assessment Noted Time PHQ-9 Depression Total Score: 0 06/08/20 25 11:05 AM EDT documented as of this encounter Care Teams Culinary Arts Instructor Relationship Specialty Start Date End Date Tabatha Reaves FNP [address] [place] [address] PCP - General Family Medicine 09/13/24 Ellen Powell RN 230 [place] [address] Registered Nurse Family Medicine 08/01/25 Lizbeth Ann 08/01/25 Rosetta 08/31/25 documented as of this encounter
--- OUTSIDE RECORDS SUMMARY | 2025-09-23 22:55 | XMS_ITS ---
Author Organization [employer] Address [address] [facility] 7t [place] [address] Care Team Providers Care Coding Coordinator Name Role Phone Tabatha ReavesP Primary Care Provider Ellen Powell RN Unavailable [phone] Lizbeth Ann Unavailable CHW Complex Status:Outreach In Progress (Enrolling) Start date:08/01/2025 Enrollment reason:ADT Feed Overview ED- [place] [facility] [place]. Please outreach to patient. Case Team Name Relationship Phone Lizbeth Ann(Responsible Staff) Continued Care and Services Coordination
--- OUTSIDE RECORDS SUMMARY | 2025-09-23 22:55 | XMS_ITS | Encounter Summary ---
Author Organization [employer] Address [address] [facility] 7t [place] [address] Care Team Providers Care Roll Sheeting Cutter Name Role Phone Tabatha Reaves Primary Care Provider [phone] Ellen Powell RN Unavailable [phone] Lizbeth Ann Unavailable Reason for Visit * Reason Onset Date Comments FYI 08/25/2025 Encounter Details Date Type Department Care Team ([facility] st Contact Info) Description 08/25/[address] [facility] 230 [place], [place] [phone] Tabatha Reaves FNP [address] [place], [place] [phone] Social History Tobacco Use Types Packs/Day Years [...] available. If any questions contact Joanne at [phone]. * Telephone Encounter - Danilo Mahoney - 08/25/2025 4:26 PM EST Tc from Rachelle with [facility] calling to inform pcp admission was delayed yesterday due topt denying services. VNA will attempt admission tomorrow. If any questions contact Rachelle at [phone]. documented in this encounter Plan of Treatment Not on file documented as of this encounter Visit Diagnoses Not on filedocumented in this encounter Additional Health Concerns Assessment Noted Time PHQ-9 Depression Total Score: 0 06/08/20 11:05 AM EDT documented as of this encounter Care Teams Roll Sheeting Cutter Relationship Specialty Start Date End Date Tabatha Reaves FNP [address] [place], [place] [phone] PCP - General Family Medicine 09/13/24 Ellen Powell RN 230 [place], [place] [phone] Registered Nurse Family Medicine 08/01/25 Lizbeth Ann 08/01/25 Rosetta 08/31/25 documented as of this encounter
--- OUTSIDE RECORDS SUMMARY | 2025-09-23 22:55 | XMS_ITS | Encounter Summary ---
Author Organization [employer] Address [address] [facility] 7t [place] [address] Care Team Providers Care Corsage Maker Name Role Phone Agatha Stallings MD Primary Care Provider [phone] aTbatha Reaves Primary Care Provider [phone] Ellen Powell RN Unavailable [phone] Lizbeth Ann Unavailable Encounter Details Date Type Department Care Team (Late st Contact Info) Description 08/09/2024 Orders Only [facility] 230 [place], [place] [phone] Agatha Stallings MD 230 [place], [place] [phone] Social History Tobacco Use Types Packs/Day Years [...] documented as of this encounter Care Teams Corsage Maker Relationship Specialty Start Date End Date Agatha Stallings MD [address] [place] [phone] PCP - General Pediatrics 04/26/22 09/12/24 Tabatha Reaves FNP [address] [place] [phone] PCP - General Family Medicine 09/13/24 Ellen Powell RN [address] [place] [address] Registered Nurse Family Medicine 08/01/25 Lizbeth Ann 08/01/25 Rosetta 08/31/25 documented as of this encounter
--- OUTSIDE RECORDS SUMMARY | 2025-09-23 22:55 | XMS_ITS | Encounter Summary ---
Author Organization [employer] Address [address] [facility] 7t [place] [address] Care Team Providers Care Financing Analyst Name Role Phone Emili Reavesupe STRINGING MACHINE TENDER Primary Care Provider [phone] Ellen Powell RN Unavailable [phone] Lizbeth Ann Unavailable Encounter Details Date Type Department Care Team (Late st Contact Info) Description 09/23/2025 Telephone [facility] MEDICINE 230 [place] [address] Asha [place] MD 230 [place] [address] Social History Tobacco Use Types Packs/Day Years [...] encounter Miscellaneous Notes * Telephone Encounter - Asha [place] MD - 09/23/2025 7:45 PM EST Transit Man FYI. Call received form [facility] who was supposed to see pt for services. They are unable to reach patient. She did not answer door or phone. They called to notify PCP. Thank you. documented in this encounter Plan of Treatment Not on file documented as of this encounter Visit Diagnoses Not on filedocumented in this encounter Additional Health Concerns Assessment Noted Time PHQ-9 Depression Total Score: 0 06/08/20 11:05 AM EDT documented as of this encounter Care Teams Financing Analyst Relationship Specialty Start Date End Date Tabatha Reaves FNP 230 [place] [address] PCP - General Family Medicine 09/13/24 Ellen Powell RN [address] [place] [address] Registered Nurse Family Medicine 08/01/25 Lizbeth Ann 08/01/25 Rosetta 08/31/25 documented as of this encounter
--- OUTSIDE RECORDS SUMMARY | 2025-09-23 22:55 | XMS_ITS ---
Author Organization [employer] Address [address] [facility] 7t [place] [address] Care Team Providers Care Ruling Machine Operator Name Role Phone Tabatha Reaves Primary Care Provider [phone] Ellen Powell RN Unavailable [phone] Lizbeth Ann Unavailable CM Complex Status:Outreach In Progress (Enrolling) Start date:08/01/2025 Enrollment reason:ADT Feed Overview ED- Pt went to [facility] ED on 07/30/25. Case Team Name Relationship Phone Ellen Powell RN(Responsible Staff) Registered Nurse Continued Care and Services Coordination
--- OUTSIDE RECORDS SUMMARY | 2025-09-23 22:55 | XMS_ITS | Encounter Summary ---
Author Organization [employer] Address [address] [facility] 7t [place] [address] Care Team Providers Care Director Of Music Therapy Name Role Phone Tabatha Reaves CREMATORIUM OPERATOR Primary Care Provider [phone] Ellen Powell RN Unavailable [phone] Lizbeth Ann Unavailable Encounter Details Date Type Department Care Team (Late st Contact Info) Description 11/10/2024 Telephone [facility] MEDICINE 230 [place] [address] Tabatha Reaves FNP 230 [place], [place] [phone] Social History Tobacco Use Types Packs/Day Years [...] documented as of this encounter Care Teams Director Of Music Therapy Relationship Specialty Start Date End Date Tabatha Reaves FNP [address] [place] [address] PCP - General Family Medicine 09/13/24 Ellen Powell, SHAMIKA 230 [place] [address] Registered Nurse Family Medicine 08/01/25 Lizbeth Ann 08/01/25 Rosetta 08/31/25 documented as of this encounter
--- OUTSIDE RECORDS SUMMARY | 2025-09-23 22:55 | XMS_ITS | Clinical Summary ---
Author Organization [employer] Address [address] [facility] 7t [place] [address] Care Team Providers Care Director Acute Name Role Phone Emili Reavesupe JOB LITHOGRAPHER Primary Care Provider [phone] Ellen Powell RN Unavailable [phone] Lizbeth Ann Unavailable Allergies No known [...] disorder with psychotic features without prior episode ([facility]) 09/22/2023 Assessment & Plan (11/13/2023 4:44 PM EST): Measurement Tools [Check all that apply and include scores] PHQ9: 16 STAGES OF CHANGE PRE-CONTEMPLATION PLAN: (check all that apply) Behavioral Health Integration Plan Patient Self Plan [facility], Patient to reach out to [facility] as needed, and mother agrees to assist in contacting [facility] and [facility] for intake appointment. I will also be putting referral for [facility]. Behavioral Health Diagnoses At this time Yarelis meets criteria for Visit Diagnoses: Problem List Items Addressed This Visit Other Current severe episode of major depressive disorder with psychotic features without prior episode ([facility]) Assessment & Plan (11/07/2023 10:17 AM EST): [...] with family had exacerbated sxs) PROTECTIVE FACTORS yazidism/spirituality , responsibility to loved ones, social/community supports [...] intervention , Patient to reach out to [facility] team as needed, Comply with medication , Patient to engage in OP therapy , Patient to reach out to [facility] as needed, and Patient to [...] organization. Date Type Department Care Team Description 09/23/2025 Telephone [facility] MEDICINE [address] [place] [address] Asha [place] MD 09/20/2025 Patient Outreach [address] [address] Taabtha Reaves FNP 09/19/[address] [address] Tabatha Reaves FNP fyi 09/01/[address] [address] Tabatha Reaves FNP Med rec 08/25/[address] [address] Tabatha Reaves FNP FYI 08/23/2025 Patient Outreach [address] [address] Tabatha Reaves, BRIELLE Care Coordination (C3 [facility] Lizbeth Ann telephone call outreach) 08/22/2025 Patient Outreach [address] [address] Tabatha Reaves, BRIELLE 08/01/2025 Patient Outreach [address] [address] Tabatha Reaves, BRIELLE Care Coordination ([facility] chart review) 08/01/2025 Patient Outreach [facility] MEDICINE [address] [place] [address] Tabatha Reaves FNP Care Management ([facility] -CHART RE[facility]/) 08/01/2025 Patient Outreach [facility] [address] [place] [address] Tabatha Reaves FNP from Last 3 Months [...] EST) CT PCR NOT DETECTED Not Detect. [facility] Comment:A not detected test [...] psychologicalconsequences. NG PCR NOT DETECTED Not Detect. [facility] Comment:A not detected test [...] AM EST 10/05/2023 8:49 AM EST Narrative [facility] - 10/05/2023 10:24 AM EST Urine us Generic External Data Provider LAB MICROBIOLOGY - GENERAL ORDERABLES Final Result [facility] [address] [place] [address] [phone] * HEPATITIS C AB W/REFL TO [...] a test for HCV RNA (test code 33563) is suggested. For additional information please refer to http://[employer].Blendspace/faq/EKF34x7 (This link is being provided for informational/ educational purposes only.) 04/30/2022 4:26 PM EDT us Agatha Stallings MD HISTORICAL/NON ORDERABLE LABS Final Result [facility] [address] * HIV 1/2 ANTIGEN/ANTIBODY,FOURTH GENERATION W/RFL [...] purpose. For additional information please refer to http://[employer]Blendspace/faq/RPP158 (This link is being provided for informational/ educational purposes only.) The performance of this assay has not been clinically validated in patients less than 2 years old. 04/30/2022 4:26 PM EDT us Agatha Stallings MD LAB BLOOD ORDERABLES Final Re sult [facility] [address] from Last 3 Months or Most Recently Relevant to Health Maintenance Insurance [employer] C3 Care Teams Director Acute Relationship Specialty Start Date End Date Tabatha Reaves FNP [address] [place] [address] PCP - General Family Medicine 09/13/24 Ellen Powell RN [address] [place] [phone] Registered Nurse Family Medicine 08/01/25 Lizbeth Ann 08/01/25 Rosetta 08/31/25
[2025-09-24 06:31] VITALS: RESP 16
--- NOTE | 2025-09-24 07:15 | PC.NURSE ---
Assumed care of patient at 0645, patient calm and cooperative this am, requesting to go home. pt aware of plan of care for med clearance and CARE team eval. Pt provided urine
[2025-09-24 07:17] VITALS: BP 116/84; PULSE 76; RESP 14; TEMP 36.7; O2SAT 98
[2025-09-24 07:48] LABS: UPreg QC Valid YES
[2025-09-24 07:52] LABS: Cannabinoid Screen Urine POSITIVE (Not Detect)
[2025-09-24 08:00] LABS: Appearance Urine Clear; Glucose Urine UA Negative (Negative); PH 6.0 (5.0-9.0); Specific Gravity - Urine >= 1.030 (1.005-1.025)
[2025-09-24 09:41] VITALS: BP 116/84; PULSE 76; RESP 14; TEMP 36.7; O2SAT 98
== END 2025-09-24 09:42 | disposition home or self-care (01) ==
PROVIDERS: Emergency Provider Emergency Medicine
DX: F41.9 Anxiety disorder, unspecified (principal); R45.1 Restlessness and agitation; R45.850 Homicidal ideations; F43.10 Post-traumatic stress disorder, unspecified; F63.81 Intermittent explosive disorder; F39 Unspecified mood [affective] disorder; Z79.899 Other long term (current) drug therapy
CPT/HCPCS: 80307; 81003; 81025; 96372; 99285; J1200; J2250; J2359; S9485